=== PATIENT | female | born 1950 | race Caucasian/White ===

== ENCOUNTER 2019-08-06 14:18 | Outpatient (CLI) | payer MEDICARE, SELFPAY ==
--- NOTE | ~2019-08-06 | CT_ITS ---
EXAMINATION: CT brain wo con EXAM DATE: 08/06/2019 14:35 INDICATION: Dizziness. TECHNIQUE: Spiral CT of the head was performed without contrast. Axial, coronal and sagittal images were reviewed. The dose-length product (DLP) for this examination was 605.33 mGy-cm. The exposure w as tailored according to patient size, and iterative reconstruction (ASIR) was used as additional dos e reduction technique. Comparison is made to prior examination from 03/30/2018. FINDINGS: There is no acute intraparenchymal hemorrhage. No evidence of intraparenchymal brain mass lesion. No evidence of acute infarction. Please note that initial head CT has limited sensitivity f or small or acute infarctions. Small old bifrontal lobe infarctions. Punctate old left caudate head lacunar infarction. There is mild to moderate periventricular and subcortical hypodensity, nonspecifi c but probably related to small vessel ischemic disease. There is mild prominence of the sulci and ventricles related to cerebral atrophy. There is intracranial carotid arteriosclerosis. There are no extra-axial collections. There is no mass effect or midline shift. The orbits are unremarkable. Soft tissue is unremarkable. The visualized sinuses and mastoid air cells are well aerated. IMPRESSION: 1. No acute intracranial findings. 2. Chronic age related findings. Reviewed, dictated and finalized at location B. [employer]
== END 2019-08-06 14:19 | disposition home or self-care (01) ==
LOC: ANHIMG 14:19
PROVIDERS: PCP Internal Medicine; Visit Provider Physician Assistant
DX: G45.9 Transient cerebral ischemic attack, unspecified (principal); R42 Dizziness and giddiness
CPT/HCPCS: 70450

== ENCOUNTER 2019-12-21 14:27 | Outpatient (CLI) | payer MEDICARE, SELFPAY ==
--- NOTE | ~2019-12-21 | US_ITS ---
EXAMINATION: US carotid duplex BI DATE: 12/21/2019 15:22 INDICATION: Carotid atherosclerosis. Cerebral atherosclerosis. Syncope. TECHNIQUE: Grayscale, color Doppler, and pulsed Doppler images of the cervical carotid arteries were obtained. The degree of vessel stenosis is placed in one of the following categories: normal, <50%, 5 0-69%, >=70% but less than near-occlusion, near-occlusion, or total occlusion. Note that percent sten osis relative to normal distal artery lumen diameter is indirectly measured from velocity measurement s as described by Get, et al. Radiology 2003; 229:340-346. COMPARISON: 03/30/2018 FINDINGS: RIGHT: The right common carotid artery (CCA) peak systolic velocity (PSV) is 64 cm/s. The right internal car otid artery (ICA) PSV is 47 cm/s. The right ICA end-diastolic velocity (EDV) is 29 cm/s. The right IC A/CCA PSV ratio is 0.7. Grayscale and color Doppler images yield an estimate of <50% diameter reducti on from plaque in the ICA. The external carotid artery (ECA) PSV is 90 cm/s. There is antegrade flow in the right vertebral artery. LEFT: The left CCA PSV is 43 cm/s. The left ICA PSV is 31 cm/s. The left ICA EDV is 19 cm/s. The left ICA/C CA PSV ratio is 0.7. Grayscale and color Doppler images yield an estimate of <50% diameter reduction from plaque in the ICA. The ECA PSV is 59 cm/s. There is antegrade flow in the left vertebral artery. IMPRESSION: 1. <50% stenosis in the right internal carotid artery. 2. <50% stenosis in the left internal carotid artery. 3. Cardiac arrhythmias is present. Correlate with EKG. Reviewed, dictated and finalized at location A.
--- NOTE | 2019-12-24 14:04 | WPDHOLTEREM ---
Holter/Event Monitor Holter/Event Monitor Date of procedure: 12/21/19 Procedure Type: 24 hour holter monitor Indications: Syncope Conclusion: 1. 24 hour holter monitor on 12/21/19. 2. Underlying rhythm is atrial fibrillation. HR range 52-176 bpm; average HR 96 bpm. 3. There are no other supraventricular arrhythmias. 4. There are 821 premature ventricular complexes and 1 ventricular couplet. No ventricular tachycardia. 5. No significant pauses greater than 2 seconds. 6. No symptoms available for correlation.
== END 2019-12-21 14:28 | disposition home or self-care (01) ==
PROVIDERS: PCP Internal Medicine; Visit Provider Internal Medicine
DX: R55 Syncope and collapse (principal); I65.23 Occlusion and stenosis of bilateral carotid arteries
CPT/HCPCS: 93225; 93226; 93880

== ENCOUNTER 2019-12-23 11:29 | Outpatient (CLI) | payer MEDICARE, SELFPAY ==
--- NOTE | 2019-12-23 11:37 | ECG_ITS ---
Measurements Intervals [place] Rate: 110 P: AK: 0 QRS: 38 QRSD: 90 T: 40 QT: 328 QTc: 445 Interpretive Statements ATRIAL FIBRILLATION WITH RAPID VENTRICULAR RESPONSE MINIMAL Q WAVES- INFERIOR LEADS ABNORMAL ECG Electronically Signed On 12-23-2019 11:57:25 CDT by Darren Chauhan D.O.
== END 2019-12-23 11:30 | disposition home or self-care (01) ==
LOC: ANHLAB 11:32
PROVIDERS: PCP Internal Medicine; Visit Provider Internal Medicine
DX: R09.89 Other specified symptoms and signs involving the circulatory and respiratory systems (principal); R94.31 Abnormal electrocardiogram [ECG] [EKG]
CPT/HCPCS: 93005

== ENCOUNTER 2020-03-23 20:34 | IRF | payer MEDICARE, SELFPAY ==
--- NOTE | 2020-03-23 19:35 | ADMGEN ---
This patient, Janessa Foster, was admitted to [facility] Room 224-01. Patient/family oriented to hospital policies and general routines including ID bracelet, bed and alarms, visiting hours, pain management, procedures, bathroom and other care routines, personal items, smoking policy, room service/diet, and visiting hours. Valuables list has been completed. Information on how to activate the Rapid Response Team has been discussed. Patient/Family are encouraged to report perceived risks to care and to ask questions if they do not understand what they are told or what they should do.
[2020-03-23 22:41] VITALS: PULSE 90
[2020-03-23] MEDS: METOPROLOL TARTRATE 25 MG TABLET 75 MG PO (22:41)
[2020-03-23] MEDS: ATORVASTATIN 40 MG TABLET 80 MG PO (22:43)
[2020-03-23] MEDS: clonazePAM (*CRX) 0.5 MG TABLET 2 MG PO (23:07)
[2020-03-23] MEDS: APIXABAN 5 MG TABLET PO (23:08)
[2020-03-24 05:04] VITALS: BP 119/94; PULSE 97; RESP 18; TEMP 35.9; O2SAT 99
[2020-03-24 05:10] LABS: Basophils Absolute Auto 0.1 K/mm3 (0.0-0.1); Basophils Percent Auto 0.9 % (0.2-1.2); Eosinophils Absolute Auto 0.3 K/mm3 (0-0.3); Eosinophils Percent Auto 3.7 % (0-4.4); Hemoglobin 13.5 g/dL (12.0-15.0); Immature Granulocyte Absolute 0.02 K/mm3 (0.00-0.031); Immature Granulocyte Percent A 0.2 % (0-0.5); Lymphocytes Percent Auto 37.9 % (18.3-44.2); Mean Corpuscular HGB Conc 34.6 g/dl (32-36); Mean Corpuscular Hemoglobin 32.9 pg (26-34); Mean Corpuscular Volume 95.1 fl (80-100); Mean Platelet Volume 10.4 fl (7.4-10.4); Monocytes Absolute Auto 0.6 K/mm3 (0.1-0.6); Monocytes Percent Auto 7.8 % (2.6-8.5); Neutrophils Percent Auto 49.5 % (45.5-73.1); Platelet Count Result 227 k/mm3 (150-375); Red Cell Distribution Width 12.4 % (11.5-14.5); White Blood Count 8.2 K/mm3 (4.5-10.0)
[2020-03-24 05:30] LABS: Anion Gap 7 mmol/L (8-16); Blood Urea Nitrogen 15 mg/dL (7-17); Calcium 8.9 mg/dL (8.4-10.2); Carbon Dioxide 27 mmol/L (22-30); Chloride 104 mmol/L (98-107); Cholesterol 119 mg/dL (0-200); Estimated Glomerular Filt Rate > 60; Glucose 133 mg/dL (65-105); HDL Direct 38 mg/dL; Potassium 4.1 mmol/L (3.4-5.0); Sodium 138 mmol/L (137-145); Triglycerides 182 mg/dL (<150)
[2020-03-24 05:42] LABS: LDL Cholesterol Direct 56 mg/dL
[2020-03-24] MEDS: APIXABAN 5 MG TABLET PO ×2 (08:45→20:45)
[2020-03-24] MEDS: ESCITALOPRAM OXALATE 5 MG TABLET PO (08:45)
[2020-03-24 08:46] VITALS: PULSE 97
[2020-03-24] MEDS: SPIRONOLACTONE 25 MG TABLET PO (08:46)
[2020-03-24] MEDS: METOPROLOL TARTRATE 25 MG TABLET 75 MG PO ×2 (08:46→20:45)
[2020-03-24] MEDS: PANTOPRAZOLE SOD SESQUIHYDRATE 20 MG TAB PO (09:28)
--- NOTE | 2020-03-24 11:21 | PM.IMHP ---
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 The patient is a 69-year-old right-handed woman with a prior medical history of hypertension and atrial fibrillation on rivaroxaban who was transferred / admitted to [facility] on March 18, 2020 from [facility] with concern for left ICA occlusion. The patient presented to [facility] ER with symptoms of right-sided weakness and speech impairment. NIH SS was 11. CT angio of the head and neck done showed occlusion of the left ICA likely at ICA terminus. There was good intracranial reconstruction of the left middle cerebral artery and left anterior cerebral artery from the right anterior circulation. She was also found to be in atrial fibrillation with rapid ventricular response at the rate of 130 to 150 per minute. She was given 20 milligram of Cardizem and started on Cardizem infusion at 5 milligram/hour. She was transferred to [facility] for ischemic infarct workup and possible surgical intervention for the left internal carotid artery. Initial examination at [facility] showed the patient had improved significantly and her in eye HSS a decrease to 1 with right lower extremity drift. Head CT showed no hemorrhage. TPA was not us administered since she was outside the window. Vascular neurology was consulted and they did not recommend any endovascular intervention since her exam had improved significantly. Patient's heart rate was 92 0s. She was started on heparin drip without boluses for left ICA stenosis and probably due to atrial fibrillation I suspect she was admitted to ICU. Laboratory daughter showed hemoglobin A1c is 6.5 lipid panel showed LDL be 121. The patient will receive atorvastatin daily. On March 22, 2020 the heparin infusion was discontinued and she was transitions to apixaban 5 milligram b.i.d.. Patient is awake alert x3 with delayed processing and decreased word-finding with limits conversation clearly expressive aphasia and also has right-sided hemiparesis. The patient has not traveled outside the [place] or had contact with someone who is ill that has traveled outside the [place] in the past 21 days. The patient has not traveled an area of the [place] that is experiencing no transmission of the Coronavirus and has not had close personal contact with anyone that has. Patient does not have a fever. The patient is not experiencing lower respiratory illness symptoms. Therapies were initiated at the acute care facility and the patient was transferred to us from [facility] on March 23, 2020. The patient has had no major surgery in the past and days. Patient has had 1 fall in the past year. The patient has not had falls with injury in the past year however she did fell. Past medical history, atrial fibrillation, tachycardia, syncope, history of CVA, GERD, hypertension, hyperlipidemia, hypothyroidism, right-sided weakness, left internal carotid artery occlusion, hyperglycemia. Past surgical history EGD and March 17, [address] esqueda Social history, patient is and retired. Patient lives alone in a 1 story home with 2 steps to enter. Laundry is on the main floor. The patient reported she was totally independent in all ADLs IA and the LS and ambulation without assistive device. Patient is community ambulator and still drives. Patient daughter is available to stay with daughter after rehab. In fact she was present at the time of the interview in an sees saw her is standing with little help brushing her teeth as a part of the occupational therapy. Patient denies tobacco alcohol or illicit use of drugs. Patient has 1 fall in the past 6 months no fal
[2020-03-24 14:00] VITALS: BP 119/88; PULSE 86; RESP 16; TEMP 36.7; O2SAT 97
--- NOTE | 2020-03-24 14:59 | RPD ---
INDIVIDUALIZED PLAN OF CARE FOR Janessa Foster Brief Synthesis of Pre-Admission Screen, Post-Admission Evaluation and Therapy Evaluations: The patient presents to rehab with left MCA territory stroke with left ICA thrombus. Comorbidities include atrial fibrillation, hypertension, hyperlipemia, hypothyroidism, right-side weakness, left internal carotid artery occlusion, mild aphasia, dizziness, left eye cataract. The complexity of the patient's medical management, nursing, and therapy needs require an inpatient rehab hospital stay with a physician-led interdisciplinary team approach. The patient?s needs will be best met in an intensive program vs. at a lower level of care. The patient requires physician services for neurology services, medical oversight, and coordination of care. The patient needs physician monitoring and treatment of adverse reactions to new medications, monitoring of infection, pain control, and anticoagulation monitoring. The patient requires nursing services for frequent neuro checks, anticoagulation therapy, medication management and education, pressure relief and skin care management, monitoring of labs, bowel and bladder training, IV administration, and fall/safety precautions. Deficits include:ADLs, Balance, Cognition, Endurance, Family Training/Education, Mobility, Pain Management, ROM, Safety, Speech, Strength, Transfers, and Swallowing. Quarry Plug [employer] Feather Driller/Case Management for: Discharge Planning and Patient/Family Counseling Physical Therapy: 5 days per week for 60 minutes. Treatments may include: Therapeutic Exercise, Gait Training, Neuromuscular Re-education, Transfer Training, Community Reintegration, Bed Mobility, Patient/Family Education, Wheelchair Mobility Group Therapy/Concurrent Therapy Rationales: -Improve attention span during functional activities in a distracted environment. -Enhance problem solving and/or adequate judgment skills during functional activities in a distracted environment. -Promote increased safety awareness in a distracted environment to reduce fall risk with functional tasks, transfers, and ambulation to allow a more safe, self-sufficient return to the home environment. -Improve dynamic balance skills to promote safety and independence with functional activities in a distracted environment for maximum gain. Occupational Therapy: 5 days per week for 60 minutes. Treatments may include: Therapeutic Exercise, Therapeutic Activity, Cognitive Training, Self-Care Transfer Training, Community Reintegration, Home Management, Patient/Family Education, Wheelchair Mobility Training, Energy Conservation Training Group Therapy/Concurrent Therapy Rationales: -Allow therapist to observe and teach generalization and carry-over of skills learned in individual therapy. -Enhance problem solving and sequencing skills during therapeutic activities in a distracted environment. -Promote increased safety awareness in a realistic setting to reduce fall risk with functional tasks due to visual and verbal distractions. -Increase functional level with ADLs, ADL transfers and use of adaptive equipment through therapeutic activities with others while promoting safety to allow a more safe, self-sufficient return home. Speech Therapy: 5 days per week for 60 minutes. Treatments may include: Dysphasia Therapy, Speech/Language/Communication Therapy, Cognitive Training, Patient/Family Education Group Therapy/Concurrent Therapy - Rationale: -Allow therapist to observe and teach generalization and carry-over of skills learned in individual therapy. -Improve comprehension skills with complex or abstract ideas through discussion in a realistic setting. -Enhance problem solving skills with complex issues during activities in a distracted environment. -Promote increased memory skills and concentration in a distracted environment for a safe transition home. -Improve attention and focus with language/communication skills in a realistic and supportive ther
[2020-03-24] MEDS: ATORVASTATIN 40 MG TABLET 80 MG PO (20:47)
[2020-03-24] MEDS: clonazePAM (*CRX) 0.5 MG TABLET 2 MG PO (20:47)
[2020-03-24 22:00] VITALS: BP 113/96; PULSE 84; RESP 16; TEMP 36.5; O2SAT 97
[2020-03-25 06:00] VITALS: BP 125/80; PULSE 90; RESP 16; TEMP 36.1; O2SAT 99
--- NOTE | 2020-03-25 08:23 | PCPTNOTE ---
Janessa Foster was evaluated for a wheeled walker on 03/25/2020 by this physical therapist assistant professor of anthropology. The wheeled walker will resolve patient's mobility limitations and will be used for ADL's within the home. The patient can safely use the wheeled walker. ?The wheeled walker will resolve the patient?s mobility deficits, including impaired balance, decreased endurance and decreased strength. Radha Mata, BEACH ATTENDANT
[2020-03-25 09:44] VITALS: PULSE 90
[2020-03-25] MEDS: SPIRONOLACTONE 25 MG TABLET PO (09:44)
[2020-03-25] MEDS: ESCITALOPRAM OXALATE 5 MG TABLET PO (09:44)
[2020-03-25] MEDS: APIXABAN 5 MG TABLET PO ×2 (09:44→21:05)
[2020-03-25] MEDS: PANTOPRAZOLE SOD SESQUIHYDRATE 20 MG TAB PO (09:44)
[2020-03-25] MEDS: METOPROLOL TARTRATE 25 MG TABLET 75 MG PO ×2 (09:44→21:05)
--- NOTE | 2020-03-25 12:21 | WPDNEURORHBP ---
Subjective Date/time seen: 03/25/20 12:21 Interval history: this 69-year-old woman is here after having had a left hemispheric stroke on with trouble word finding and expressing herself which is getting better along with right hemiparesis she is right-handed and making excellent progress denies any headache nausea vomiting chest pain shortness of breath fever chills sore throat Review of Systems Review of Systems: All systems reviewed & are unremarkable except as noted in HPI and below Functional Status Ambulation Ability Ability to Ambulate 10 Feet: Contact Guard Ability to Ambulate 50 Feet With 2 Turns: Contact Guard Ability to Ambulate 150 Feet: Contact Guard Ambulation Assistive Devices: Walker, Wheeled Transfers Ability Ability to Transfer In/Out of Chair: Contact Guard Exam Const: General: comfortable and no acute distress HENMT: General nose exam: Normal nares present Mouth: Yes moist mucous membranes Eyes: General: appearance normal, both eyes and all related structures Neck: Neck: supple and no JVD Resp: Effort & Inspection: normal respiratory effort Auscultation: clear to auscultation bilaterally Cardio: Rate: regular rate Rhythm: regular rhythm GI: GI Palp: Yes Soft to palpation Auscultation: normal bowel sounds Skin: General skin exam: normal color and no rashes or lesions noted Neuro: Other: the patient is awake alert well oriented able to communicate and she was talking to her niece relatively fluid leak comparing to yesterday who lives in [place] right-sided weakness is also improving Extrem: General: normal to inspection Psych: Mental Status: mental status grossly normal Objective Data Vital Signs Vital Signs: Vital Signs - 24 hr 03/24/20 14:00 03/24/20 22:00 03/25/20 06:00 Temperature 36.7 C 36.5 C 36.1 C L Pulse Rate 86 84 90 Respiratory Rate 16 16 16 Blood Pressure 119/88 113/96 H 125/80 Pulse Oximetry 97 97 99 03/25/20 09:44 Temperature Pulse Rate 90 Respiratory Rate Blood Pressure Pulse Oximetry Intake/Output Intake/Output: Intake & Output 03/22/20 03/23/20 03/24/20 03/25/20 23:59 23:59 23:59 23:59 Intake Total 1200 480 Balance 1200 480 Meds/Results Medications: Active Medications Generic Name Dose Route Start Last Admin Trade Name Freq PRN Reason Stop Dose Admin Apixaban 5 mg 03/23/20 22:15 03/25/20 09:44 Eliquis PO 5 mg Q12HR ISAAC Administration Atorvastatin Calcium 80 mg 03/23/20 21:30 03/24/20 20:47 Lipitor PO 80 mg HS ISAAC Administration Clonazepam 2 mg 03/23/20 21:00 03/24/20 20:47 Klonopin Tablet PO 2 mg HS ISAAC Administration Escitalopram Oxalate 5 mg 03/24/20 09:00 03/25/20 09:44 Lexapro PO 5 mg DAILY ISAAC Administration Metoprolol Tartrate 75 mg 03/23/20 21:30 03/25/20 09:44 Lopressor PO 75 mg Q12HR ISAAC Administration Pantoprazole Sodium 20 mg 03/24/20 09:00 03/25/20 09:44 Protonix PO 20 mg QAM ISAAC Administration Spironolactone 25 mg 03/24/20 09:00 03/25/20 09:44 Aldactone PO 25 mg DAILY ISAAC Administration Tramadol HCl 50 mg 03/24/20 16:03 Ultram PO HS PRN Pain Rated 4-6 Progress Note: A&P Assessment and Plan (1) A-fib: Code(s): I48.91 - Unspecified atrial fibrillation Status: Acute (2) Syncope: Code(s): R55 - Syncope and collapse Status: Acute (3) History of CVA (cerebrovascular accident): Code(s): Z86.73 - Personal history of transient ischemic attack (TIA), and cerebral infarction without residual deficits Status: Acute (4) Fatigue: Code(s): R53.83 - Other fatigue Status: Acute (5) Gastro-esophageal reflux disease without esophagitis: Code(s): K21.9 - Gastro-esophageal reflux disease without esophagitis Status: Acute (6) History of CVA with residual deficit: Code(s): I69.30 - Unspecified sequelae of cerebral infarction Status: Acute (
[2020-03-25 13:38] VITALS: BMI 28.5
[2020-03-25 13:39] VITALS: BMI 28.5
[2020-03-25 14:00] VITALS: BP 130/67; PULSE 98; RESP 16; TEMP 36.2; O2SAT 99
[2020-03-25 21:05] VITALS: PULSE 90
[2020-03-25] MEDS: clonazePAM (*CRX) 0.5 MG TABLET 2 MG PO (21:05)
[2020-03-25] MEDS: ATORVASTATIN 40 MG TABLET 80 MG PO (21:05)
[2020-03-25 22:00] VITALS: BP 152/85; PULSE 87; RESP 19; TEMP 36.2; O2SAT 98
[2020-03-26 06:00] VITALS: BP 135/86; PULSE 74; RESP 16; TEMP 36; O2SAT 100
[2020-03-26] MEDS: APIXABAN 5 MG TABLET PO ×2 (08:25→20:04)
[2020-03-26 08:26] VITALS: PULSE 74
[2020-03-26] MEDS: METOPROLOL TARTRATE 25 MG TABLET 75 MG PO ×2 (08:26→20:04)
[2020-03-26] MEDS: ESCITALOPRAM OXALATE 5 MG TABLET PO (08:26)
[2020-03-26] MEDS: PANTOPRAZOLE SOD SESQUIHYDRATE 20 MG TAB PO (08:26)
[2020-03-26] MEDS: SPIRONOLACTONE 25 MG TABLET PO (08:26)
[2020-03-26 14:00] VITALS: BP 116/87; PULSE 87; RESP 18; TEMP 36.8; O2SAT 97
[2020-03-26 20:04] VITALS: PULSE 88
[2020-03-26] MEDS: clonazePAM (*CRX) 0.5 MG TABLET 2 MG PO (20:04)
[2020-03-26] MEDS: ATORVASTATIN 40 MG TABLET 80 MG PO (20:04)
[2020-03-26 22:00] VITALS: BP 102/76; PULSE 78; RESP 17; TEMP 36; O2SAT 98
[2020-03-27 06:00] VITALS: BP 119/83; PULSE 83; RESP 17; TEMP 36.1; O2SAT 98
[2020-03-27] MEDS: PANTOPRAZOLE SOD SESQUIHYDRATE 20 MG TAB PO (08:35)
[2020-03-27] MEDS: APIXABAN 5 MG TABLET PO ×2 (08:35→20:33)
[2020-03-27] MEDS: ESCITALOPRAM OXALATE 5 MG TABLET PO (08:35)
[2020-03-27 08:36] VITALS: PULSE 80
[2020-03-27] MEDS: SPIRONOLACTONE 25 MG TABLET PO (08:36)
[2020-03-27] MEDS: METOPROLOL TARTRATE 25 MG TABLET 75 MG PO ×2 (08:36→20:33)
[2020-03-27 14:00] VITALS: BP 121/81; PULSE 86; RESP 20; TEMP 36.7; O2SAT 99
--- NOTE | 2020-03-27 17:17 | WPDNEURORHBP ---
Subjective Date/time seen: 03/27/20 17:17 Interval history: this 69-year-old woman is here after having had the left middle cerebral artery territory infarct also atrial fibrillation for which she is on apixaban her main issue remains subtle but present speech defect and difficulty recognizing right versus left and performing the activities bilaterally because of the disconnection between the right and left cerebral hemisphere at times difficulty source walking the repetitive alternating movement and unable to understand complicated questioning are 3 steps commands otherwise the motor weakness remains in fact improved bilaterally right is affected more so but considering the disconnect she feels the left side is weaker in any event she is weak bilaterally and niece the PT OT and speech Review of Systems Review of Systems: All systems reviewed & are unremarkable except as noted in HPI and below Functional Status Ambulation Ability Ability to Ambulate 10 Feet: Standby Assistance Ability to Ambulate 50 Feet With 2 Turns: Standby Assistance Ability to Ambulate 150 Feet: Standby Assistance Ambulation Assistive Devices: Walker, Wheeled Transfers Ability Ability to Transfer In/Out of Chair: Standby Assistance Exam Const: General: comfortable and no acute distress HENMT: General nose exam: Normal nares present Mouth: Yes moist mucous membranes Eyes: General: appearance normal, both eyes and all related structures Neck: Neck: supple and no JVD Resp: Effort & Inspection: normal respiratory effort Auscultation: clear to auscultation bilaterally Cardio: Rate: regular rate Rhythm: regular rhythm GI: GI Palp: Yes Soft to palpation Auscultation: normal bowel sounds Skin: General skin exam: normal color and no rashes or lesions noted Neuro: Other: patient is awake alert oriented x3 difficult to follow 3 step command and bilateral weakness due to disconnection where it is difficult to assess with the right is weaker the left is weaker because the dexterity is decreased bilaterally Extrem: General: normal to inspection Psych: Mental Status: mental status grossly normal Other: short-term memory deficit along with comprehension defect in speech and language function Objective Data Vital Signs Vital Signs: Vital Signs - 24 hr 03/26/20 20:04 03/26/20 22:00 03/27/20 06:00 Temperature 36.0 C L 36.1 C L Pulse Rate 88 78 83 Respiratory Rate 17 17 Blood Pressure 102/76 119/83 Pulse Oximetry 98 98 03/27/20 08:36 03/27/20 14:00 Temperature 36.7 C Pulse Rate 80 86 Respiratory Rate 20 Blood Pressure 121/81 Pulse Oximetry 99 Intake/Output Intake/Output: Intake & Output 03/24/20 03/25/20 03/26/20 03/27/20 23:59 23:59 23:59 23:59 Intake Total 1200 1440 480 480 Balance 1200 1440 480 480 Meds/Results Medications: Active Medications Generic Name Dose Route Start Last Admin Trade Name Freq PRN Reason Stop Dose Admin Apixaban 5 mg 03/23/20 22:15 03/27/20 08:35 Eliquis PO 5 mg Q12HR ISAAC Administration Atorvastatin Calcium 80 mg 03/23/20 21:30 03/26/20 20:04 Lipitor PO 80 mg HS ISAAC Administration Clonazepam 2 mg 03/23/20 21:00 03/26/20 20:04 Klonopin Tablet PO 2 mg HS ISAAC Administration Escitalopram Oxalate 5 mg 03/24/20 09:00 03/27/20 08:35 Lexapro PO 5 mg DAILY ISAAC Administration Metoprolol Tartrate 75 mg 03/23/20 21:30 03/27/20 08:36 Lopressor PO 75 mg Q12HR ISAAC Administration Pantoprazole Sodium 20 mg 03/24/20 09:00 03/27/20 08:35 Protonix PO 20 mg QAM ISAAC Administration Spironolactone 25 mg 03/24/20 09:00 03/27/20 08:36 Aldactone PO 25 mg DAILY ISAAC Administration Tramadol HCl 50 mg 03/24/20 16:03 Ultram PO HS PRN Pain Rated 4-6 Progress Note: A&P Assessment and Plan (1) A-fib: Code(s): I48.91 - Unspecified atrial fibrillation Status: Acute (2) History of CVA (cerebrovascular a
[2020-03-27 20:33] VITALS: PULSE 82
[2020-03-27] MEDS: ATORVASTATIN 40 MG TABLET 80 MG PO (20:33)
[2020-03-27] MEDS: clonazePAM (*CRX) 0.5 MG TABLET 2 MG PO (20:36)
[2020-03-27 21:07] VITALS: BP 146/76; PULSE 83; RESP 18; TEMP 36; O2SAT 100
[2020-03-28 05:44] VITALS: BP 129/81; PULSE 88; RESP 18; TEMP 36.3; O2SAT 100
[2020-03-28] MEDS: APIXABAN 5 MG TABLET PO ×2 (08:35→20:28)
[2020-03-28 08:36] VITALS: PULSE 88
[2020-03-28] MEDS: METOPROLOL TARTRATE 25 MG TABLET 75 MG PO ×2 (08:36→20:28)
[2020-03-28] MEDS: SPIRONOLACTONE 25 MG TABLET PO (08:36)
[2020-03-28] MEDS: ESCITALOPRAM OXALATE 5 MG TABLET PO (08:36)
[2020-03-28] MEDS: PANTOPRAZOLE SOD SESQUIHYDRATE 20 MG TAB PO (08:36)
--- NOTE | 2020-03-28 09:18 | PCPTNOTE ---
Janessa Foster was evaluated for a wheeled walker on 03/28/2020 by this physical therapist. The wheeled walker will resolve patient's mobility limitations and will be used for ADL's within the home. The patient can safely use the wheeled walker. ?The wheeled walker will resolve the patient?s mobility deficits, including impaired balance, decreased strength and endurance and safety with gait. Cari Ghotra, PT
--- NOTE | 2020-03-28 10:51 | WPDNEURORHBP ---
Subjective Date/time seen: 03/28/20 10:51 69 years old lady admitted to the rehab with left middle cerebral artery territory stroke and left ICA thrombus in addition to the history of 1. Hypertension 2. Atrial fibrillation for which she is on rivaroxaban 3. GERD 4. Hypothyroidism and 5. Hyperlipidemia. Routine lab with mild anemia, GFR of 55, triglycerides of 182 and abnormal UA Review of Systems Review of Systems: All systems reviewed & are unremarkable except as noted in HPI and below Functional Status Ambulation Ability Ability to Ambulate 10 Feet: Standby Assistance Ability to Ambulate 50 Feet With 2 Turns: Standby Assistance Ability to Ambulate 150 Feet: Standby Assistance Ambulation Assistive Devices: Walker, Wheeled Transfers Ability Ability to Transfer In/Out of Chair: Standby Assistance Exam Narrative: Exam Narrative: exam reveals her to be awake alert in no obvious acute distress ear nose throat examination normal no rhinorrhea moist mucous membranes. Eyes normal. Neck is supple with no JVD. Respiration without rhonchi or crepitation. Heart regular. Abdomen is soft with normal bowel sounds. Skin clear neurological examination abnormal though awake alert oriented x3 and follows the commands but has bilateral weakness. mental status otherwise normal Objective Data Vital Signs Vital Signs: Vital Signs - 24 hr 03/27/20 14:00 03/27/20 20:33 03/27/20 21:07 Temperature 36.7 C 36.0 C L Pulse Rate 86 82 83 Respiratory Rate 20 18 Blood Pressure 121/81 146/76 H Pulse Oximetry 99 100 03/28/20 05:44 03/28/20 08:36 Temperature 36.3 C L Pulse Rate 88 88 Respiratory Rate 18 Blood Pressure 129/81 Pulse Oximetry 100 Intake/Output Intake/Output: Intake & Output 03/25/20 03/26/20 03/27/20 03/28/20 23:59 23:59 23:59 23:59 Intake Total 1440 480 720 240 Balance 1440 480 720 240 Meds/Results Medications: Active Medications Generic Name Dose Route Start Last Admin Trade Name Freq PRN Reason Stop Dose Admin Apixaban 5 mg 03/23/20 22:15 03/28/20 08:35 Eliquis PO 5 mg Q12HR ISAAC Administration Atorvastatin Calcium 80 mg 03/23/20 21:30 03/27/20 20:33 Lipitor PO 80 mg HS ISAAC Administration Clonazepam 2 mg 03/23/20 21:00 03/27/20 20:36 Klonopin Tablet PO 2 mg HS ISAAC Administration Escitalopram Oxalate 5 mg 03/24/20 09:00 03/28/20 08:36 Lexapro PO 5 mg DAILY ISAAC Administration Metoprolol Tartrate 75 mg 03/23/20 21:30 03/28/20 08:36 Lopressor PO 75 mg Q12HR ISAAC Administration Pantoprazole Sodium 20 mg 03/24/20 09:00 03/28/20 08:36 Protonix PO 20 mg QAM ISAAC Administration Spironolactone 25 mg 03/24/20 09:00 03/28/20 08:36 Aldactone PO 25 mg DAILY ISAAC Administration Tramadol HCl 50 mg 03/24/20 16:03 Ultram PO HS PRN Pain Rated 4-6 Progress Note: A&P Additional Plan continue the management as such
[2020-03-28 14:00] VITALS: BP 111/75; PULSE 98; RESP 18; TEMP 36.3; O2SAT 96
[2020-03-28] MEDS: clonazePAM (*CRX) 0.5 MG TABLET 2 MG PO (20:27)
[2020-03-28 20:28] VITALS: PULSE 88
[2020-03-28] MEDS: ATORVASTATIN 40 MG TABLET 80 MG PO (20:28)
[2020-03-28 22:00] VITALS: BP 137/84; PULSE 88; RESP 17; TEMP 36; O2SAT 96
[2020-03-29 06:00] VITALS: BP 127/87; PULSE 101; RESP 19; TEMP 36; O2SAT 97
[2020-03-29 08:12] VITALS: PULSE 101
[2020-03-29] MEDS: APIXABAN 5 MG TABLET PO ×2 (08:12→21:54)
[2020-03-29] MEDS: SPIRONOLACTONE 25 MG TABLET PO (08:12)
[2020-03-29] MEDS: ESCITALOPRAM OXALATE 5 MG TABLET PO (08:12)
[2020-03-29] MEDS: METOPROLOL TARTRATE 25 MG TABLET 75 MG PO ×2 (08:12→21:55)
[2020-03-29] MEDS: PANTOPRAZOLE SOD SESQUIHYDRATE 20 MG TAB PO (08:12)
--- NOTE | 2020-03-29 13:17 | WPDNEURORHBP ---
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 and has difficulty using the left side along with right-sided weakness so she has bilateral component and she has trouble recognizing right versus left otherwise speech is really much clearer and she is improving improving quite a bit however because of her disconnection she will need assistance when she is discharged she denies any headache nausea vomiting chest pain shortness of breath fever chills sore throat According to the occupational therapist the patient needs lots of cues and guidance because of the disconnection on the other hand she is able to walk 400 feet is speech therapy seeing her and working with her deficits the family told us via telephone that they will provide 247 supervision after discharge which will be in the next few days Review of Systems Review of Systems: All systems reviewed & are unremarkable except as noted in HPI and below Functional Status Ambulation Ability Ability to Ambulate 10 Feet: Independent Ability to Ambulate 50 Feet With 2 Turns: Independent Ability to Ambulate 150 Feet: Standby Assistance Ambulation Assistive Devices: Walker, Wheeled Transfers Ability Ability to Transfer In/Out of Chair: Independent Exam Const: General: comfortable and no acute distress HENMT: General nose exam: Normal nares present Mouth: Yes moist mucous membranes Eyes: General: appearance normal, both eyes and all related structures Neck: Neck: supple and no JVD Resp: Effort & Inspection: normal respiratory effort Auscultation: clear to auscultation bilaterally Cardio: Other: rate controlled atrial fibrillation GI: GI Palp: Yes Soft to palpation Auscultation: normal bowel sounds Skin: General skin exam: normal color and no rashes or lesions noted Neuro: Other: patient is awake alert oriented x3 has trouble word finding and once examiner communicates with her here she will be able to find clear speech defect which is subtle but present the difference between the right and the left is still defective with bilateral deficit right-sided weakness clearly from the left hemispheric stroke and the left-sided decreased dexterity and use because of disconnection with the 2 hemispheres she is able to walk with the little assistance about 400 feet but with guidance and fall prevention Extrem: General: normal to inspection Psych: Mental Status: mental status grossly normal Objective Data Vital Signs Vital Signs: Vital Signs - 24 hr 03/28/20 14:00 03/28/20 20:28 03/28/20 22:00 Temperature 36.3 C L 36.0 C L Pulse Rate 98 88 88 Respiratory Rate 18 17 Blood Pressure 111/75 137/84 Pulse Oximetry 96 96 03/29/20 06:00 03/29/20 08:12 Temperature 36.0 C L Pulse Rate 101 H 101 H Respiratory Rate 19 Blood Pressure 127/87 Pulse Oximetry 97 Intake/Output Intake/Output: Intake & Output 03/26/20 03/27/20 03/28/20 03/29/20 23:59 23:59 23:59 23:59 Intake Total 480 720 720 240 Balance 480 720 720 240 Meds/Results Medications: Active Medications Generic Name Dose Route Start Last Admin Trade Name Heladioq PRN Reason Stop Dose Admin Apixaban 5 mg 03/23/20 22:15 03/29/20 08:12 Eliquis PO 5 mg Q12HR ISAAC Administration Atorvastatin Calcium 80 mg 03/23/20 21:30 03/28/20 20:28 Lipitor PO 80 mg HS ISAAC Administration Clonazepam 2 mg 03/23/20 21:00 03/28/20 20:27 Klonopin Tablet PO 2 mg HS ISAAC Administration Escitalopram Oxalate 5 mg 03/24/20 09:00 03/29/20 08:12 Lexapro PO 5 mg DAILY ISAAC Administration Metoprolol Tartrate 75 mg 03/23/20 21:30 03/29/20 08:12 Lopressor PO 75 mg Q12HR ISAAC Administration Pantoprazole Sodium 20 mg 03/24/20 09:00
[2020-03-29 14:00] VITALS: BP 130/91; PULSE 60; RESP 18; TEMP 36.2; O2SAT 96
[2020-03-29 20:00] VITALS: PULSE 83; RESP 19; O2SAT 97
[2020-03-29] MEDS: ATORVASTATIN 40 MG TABLET 80 MG PO (21:54)
[2020-03-29 21:55] VITALS: PULSE 83
[2020-03-29 22:00] VITALS: BP 121/88; PULSE 83; RESP 19; TEMP 36.1; O2SAT 97
[2020-03-29] MEDS: clonazePAM (*CRX) 0.5 MG TABLET 2 MG PO (22:00)
[2020-03-30 06:00] VITALS: BP 133/84; PULSE 80; RESP 16; TEMP 36.5; O2SAT 96
[2020-03-30 08:34] VITALS: PULSE 78
[2020-03-30] MEDS: METOPROLOL TARTRATE 25 MG TABLET 75 MG PO ×2 (08:34→20:02)
[2020-03-30] MEDS: SPIRONOLACTONE 25 MG TABLET PO (08:34)
[2020-03-30] MEDS: APIXABAN 5 MG TABLET PO ×2 (08:34→20:05)
[2020-03-30] MEDS: ESCITALOPRAM OXALATE 5 MG TABLET PO (08:34)
[2020-03-30] MEDS: PANTOPRAZOLE SOD SESQUIHYDRATE 20 MG TAB PO (08:34)
--- NOTE | 2020-03-30 13:24 | PCDIET ---
Nutrition Follow-Up Complete: Nutrition Diagnosis: Overweight related to history of excessive energy intake as evidenced by BMI of 28.6. Nutrition Goal: Patient to consume 75% of meals on heart healthy diet Goal met. Patient consuming 100% of recorded meals on heart healthy diet which is appropriate. Patient denies c/o or concerns. No new recommendations at this time. Last recorded weight is 68.6 kg. Recommend obtaining weekly weights. Bowel Motility: Last documented BM on 03/29/20. Labs Reviewed: No new labs available. Meds Noted: Lipitor, Lopressor, Protonix, Aldactone Additional Notes: No documented skin breakdown. Will continue to monitor with same goal. Nutrition Monitoring and Evaluation: Follow up in 7 days.
[2020-03-30 14:00] VITALS: BP 109/78; PULSE 100; RESP 20; TEMP 37; O2SAT 96
--- NOTE | 2020-03-30 15:09 | WPDNEURORHBP ---
Subjective Date/time seen: 03/30/20 15:09 Interval history: this 69-year-old woman is here with left hemispheric stroke and left internal carotid artery occlusion she continues to make progress however needs supervision at least in all the activities of daily living because of the left hemispheric deficit with a disconnection between the left hemisphere in the right hemisphere overall however see significantly improving as for as the hemiparesis is concerned Review of Systems Review of Systems: All systems reviewed & are unremarkable except as noted in HPI and below Functional Status Ambulation Ability Ability to Ambulate 10 Feet: Standby Assistance Ability to Ambulate 50 Feet With 2 Turns: Contact Guard Ability to Ambulate 150 Feet: Contact Guard Ambulation Assistive Devices: Walker, Wheeled Transfers Ability Ability to Transfer In/Out of Chair: Independent Exam Const: General: comfortable and no acute distress HENMT: General nose exam: Normal nares present Mouth: Yes moist mucous membranes Eyes: General: appearance normal, both eyes and all related structures Neck: Neck: supple and no JVD Resp: Effort & Inspection: normal respiratory effort Auscultation: clear to auscultation bilaterally Cardio: Rate: regular rate Rhythm: regular rhythm GI: GI Palp: Yes Soft to palpation Auscultation: normal bowel sounds Skin: General skin exam: normal color and no rashes or lesions noted Neuro: Other: patient is awake alert well oriented and improving hemiparesis Extrem: General: normal to inspection Psych: Mental Status: mental status grossly normal Other: mild cognitive deficit due to involvement of the left cerebral hemisphere Objective Data Vital Signs Vital Signs: Vital Signs - 24 hr 03/29/20 20:00 03/29/20 21:55 03/29/20 22:00 Temperature 36.1 C L Pulse Rate 83 83 83 Respiratory Rate 19 19 Blood Pressure 121/88 Pulse Oximetry 97 97 03/30/20 06:00 03/30/20 08:34 Temperature 36.5 C Pulse Rate 80 78 Respiratory Rate 16 Blood Pressure 133/84 Pulse Oximetry 96 Intake/Output Intake/Output: Intake & Output 03/27/20 03/28/20 03/29/20 03/30/20 23:59 23:59 23:59 23:59 Intake Total 720 720 840 240 Balance 720 720 840 240 Meds/Results Medications: Active Medications Generic Name Dose Route Start Last Admin Trade Name Freq PRN Reason Stop Dose Admin Apixaban 5 mg 03/23/20 22:15 03/30/20 08:34 Eliquis PO 5 mg Q12HR ISAAC Administration Atorvastatin Calcium 80 mg 03/23/20 21:30 03/29/20 21:54 Lipitor PO 80 mg HS ISAAC Administration Clonazepam 2 mg 03/23/20 21:00 03/29/20 22:00 Klonopin Tablet PO 2 mg HS ISAAC Administration Escitalopram Oxalate 5 mg 03/24/20 09:00 03/30/20 08:34 Lexapro PO 5 mg DAILY ISAAC Administration Metoprolol Tartrate 75 mg 03/23/20 21:30 03/30/20 08:34 Lopressor PO 75 mg Q12HR ISAAC Administration Pantoprazole Sodium 20 mg 03/24/20 09:00 03/30/20 08:34 Protonix PO 20 mg QAM ISAAC Administration Spironolactone 25 mg 03/24/20 09:00 03/30/20 08:34 Aldactone PO 25 mg DAILY ISAAC Administration Tramadol HCl 50 mg 03/24/20 16:03 Ultram PO HS PRN Pain Rated 4-6 Progress Note: A&P Assessment and Plan (1) Stenosis of left internal carotid artery: Code(s): I65.22 - Occlusion and stenosis of left carotid artery Status: Acute (2) A-fib: Code(s): I48.91 - Unspecified atrial fibrillation Status: Acute (3) History of CVA (cerebrovascular accident): Code(s): Z86.73 - Personal history of transient ischemic attack (TIA), and cerebral infarction without residual deficits Status: Acute (4) Fatigue: Code(s): R53.83 - Other fatigue Status: Acute (5) Gastro-esophageal reflux disease without esophagitis: Code(s): K21.9 - Gastro-esophageal reflux disease without esophagitis Status: Acute (6) History of CVA with res
[2020-03-30 20:02] VITALS: PULSE 74
[2020-03-30] MEDS: ATORVASTATIN 40 MG TABLET 80 MG PO (20:05)
[2020-03-30] MEDS: clonazePAM (*CRX) 0.5 MG TABLET 2 MG PO (20:05)
[2020-03-30 22:00] VITALS: BP 109/49; PULSE 85; RESP 18; TEMP 36.7; O2SAT 97
[2020-03-31 05:51] LABS: Basophils Absolute Auto 0.1 K/mm3 (0.0-0.1); Basophils Percent Auto 1.3 % (0.2-1.2); Eosinophils Absolute Auto 0.3 K/mm3 (0-0.3); Eosinophils Percent Auto 5.4 % (0-4.4); Hematocrit 39.4 % (37.0-47.0); Hemoglobin 13.1 g/dL (12.0-15.0); Lymphocytes Absolute Auto 2.31 K/mm3 (0.9-3.2); Lymphocytes Percent Auto 41.8 % (18.3-44.2); Mean Corpuscular HGB Conc 33.2 g/dl (32-36); Mean Corpuscular Hemoglobin 33.3 pg (26-34); Mean Corpuscular Volume 100.3 fl (80-100); Mean Platelet Volume 10.4 fl (7.4-10.4); Monocytes Absolute Auto 0.5 K/mm3 (0.1-0.6); Monocytes Percent Auto 9.2 % (2.6-8.5); Neutrophils Absolute Auto 2.3 K/mm3 (1.3-6.7); Neutrophils Percent Auto 42.3 % (45.5-73.1); Platelet Count Result 246 k/mm3 (150-375); Red Blood Count 3.93 M/mm3 (4.2-5.4); Red Cell Distribution Width 12.4 % (11.5-14.5); White Blood Count 5.5 K/mm3 (4.5-10.0)
[2020-03-31 06:00] VITALS: BP 151/75; PULSE 90; RESP 19; TEMP 36; O2SAT 99
[2020-03-31 06:06] LABS: Anion Gap 7 mmol/L (8-16); Blood Urea Nitrogen 18 mg/dL (7-17); Calcium 8.7 mg/dL (8.4-10.2); Carbon Dioxide 29 mmol/L (22-30); Chloride 103 mmol/L (98-107); Estimated CRCL calculation 50 ml/min; Estimated Glomerular Filt Rate > 60; Glucose 111 mg/dL (65-105); Potassium 3.9 mmol/L (3.4-5.0); Sodium 139 mmol/L (137-145)
[2020-03-31 08:20] VITALS: PULSE 84; RESP 18
[2020-03-31 08:24] VITALS: PULSE 86
[2020-03-31] MEDS: METOPROLOL TARTRATE 25 MG TABLET 75 MG PO ×2 (08:24→20:21)
[2020-03-31] MEDS: SPIRONOLACTONE 25 MG TABLET PO (08:24)
[2020-03-31] MEDS: ESCITALOPRAM OXALATE 5 MG TABLET PO (08:24)
[2020-03-31] MEDS: APIXABAN 5 MG TABLET PO ×2 (08:24→20:23)
[2020-03-31] MEDS: PANTOPRAZOLE SOD SESQUIHYDRATE 20 MG TAB PO (08:24)
--- NOTE | 2020-03-31 11:37 | WPDNEURORHBP ---
Subjective Date/time seen: 03/31/20 11:37 Interval history: this patient is here with left hemispheric stroke with the right-sided weakness and also had decreased dexterity of the left side also cognitive deficit related to the left hemispheric stroke she denies any headache nausea vomiting chest pain shortness of breath fever chills sore throat Review of Systems Review of Systems: All systems reviewed & are unremarkable except as noted in HPI and below Functional Status Ambulation Ability Ability to Ambulate 10 Feet: Independent Ability to Ambulate 50 Feet With 2 Turns: Independent Ability to Ambulate 150 Feet: Independent Ambulation Assistive Devices: Walker, Wheeled Transfers Ability Ability to Transfer In/Out of Chair: Independent Exam Narrative: Exam Narrative: patient is awake alert well oriented times place and person has left hemispheric deficit with almost near normal speech and language functions mild cognitive deficit right-sided weakness and left sided decreased dexterity The eyes are unremarkable ENT exam is unremarkable chest is clear abdomen is soft not tender extremities revealed no deformities reflexes are preserved she is needing assistance all the activities of daily living cardiac rhythm is normal and intact and no symptoms are reported Objective Data Vital Signs Vital Signs: Vital Signs - 24 hr 03/30/20 14:00 03/30/20 20:02 03/30/20 22:00 Temperature 37.0 C 36.7 C Pulse Rate 100 74 85 Respiratory Rate 20 18 Blood Pressure 109/78 109/49 L Pulse Oximetry 96 97 03/31/20 06:00 03/31/20 08:20 03/31/20 08:24 Temperature 36.0 C L Pulse Rate 90 84 86 Respiratory Rate 19 18 Blood Pressure 151/75 H Pulse Oximetry 99 Intake/Output Intake/Output: Intake & Output 03/28/20 03/29/20 03/30/20 03/31/20 23:59 23:59 23:59 23:59 Intake Total 720 840 720 360 Balance 720 840 720 360 Meds/Results Medications: Active Medications Generic Name Dose Route Start Last Admin Trade Name Freq PRN Reason Stop Dose Admin Apixaban 5 mg 03/23/20 22:15 03/31/20 08:24 Eliquis PO 5 mg Q12HR ISAAC Administration Atorvastatin Calcium 80 mg 03/23/20 21:30 03/30/20 20:05 Lipitor PO 80 mg HS ISAAC Administration Clonazepam 2 mg 03/23/20 21:00 03/30/20 20:05 Klonopin Tablet PO 2 mg HS ISAAC Administration Escitalopram Oxalate 5 mg 03/24/20 09:00 03/31/20 08:24 Lexapro PO 5 mg DAILY ISAAC Administration Metoprolol Tartrate 75 mg 03/23/20 21:30 03/31/20 08:24 Lopressor PO 75 mg Q12HR ISAAC Administration Pantoprazole Sodium 20 mg 03/24/20 09:00 03/31/20 08:24 Protonix PO 20 mg QAM ISAAC Administration Spironolactone 25 mg 03/24/20 09:00 03/31/20 08:24 Aldactone PO 25 mg DAILY ISAAC Administration Tramadol HCl 50 mg 03/24/20 16:03 Ultram PO HS PRN Pain Rated 4-6 Labs Labs: Laboratory Results - last 24 hr 03/31/20 03/31/20 05:04 05:04 WBC 5.5 RBC 3.93 L Hgb 13.1 Hct 39.4 MCV 100.3 H MCH 33.3 MCHC 33.2 RDW 12.4 Plt Count 246 MPV 10.4 Immature Gran % (Auto) 0.0 Neut % (Auto) 42.3 L Lymph % (Auto) 41.8 [place] % (Auto) 9.2 H Eos % (Auto) 5.4 H Baso % (Auto) 1.3 H Lymph # (Auto) 2.31 [place] # (Auto) 0.5 Eos # (Auto) 0.3 Baso # (Auto) 0.1 Abs Immat Gran (auto) 0.00 Absolute Neuts (auto) 2.3 Absolute Nucleated RBC 0.0 Nucleated RBC % 0.0 Sodium 139 Potassium 3.9 Chloride 103 Carbon Dioxide 29 Anion Gap 7 L BUN 18 H Creatinine 0.80 Estim Creat Clear Calc 50 Estimated GFR > 60 Glucose 111 H Calcium 8.7 Progress Note: A&P Assessment and Plan (1) Stenosis of left internal carotid artery: Code(s): I65.22 - Occlusion and stenosis of left carotid artery Status: Acute (2) A-fib: Code(s): I48.91 - Unspecified atrial fibrillation Status: Acute (3) History of CVA (cerebrovascular accident): [place]
[2020-03-31 14:00] VITALS: BP 131/93; PULSE 99; RESP 18; TEMP 36.8; O2SAT 98
[2020-03-31 20:21] VITALS: PULSE 68
[2020-03-31] MEDS: clonazePAM (*CRX) 0.5 MG TABLET 2 MG PO (20:21)
[2020-03-31] MEDS: ATORVASTATIN 40 MG TABLET 80 MG PO (20:21)
[2020-03-31 22:00] VITALS: BP 124/91; PULSE 80; RESP 18; TEMP 36.7; O2SAT 97
[2020-04-01 06:00] VITALS: BP 152/95; PULSE 80; RESP 18; TEMP 36.9; O2SAT 99
[2020-04-01 08:50] VITALS: PULSE 78
[2020-04-01] MEDS: METOPROLOL TARTRATE 25 MG TABLET 75 MG PO (08:50)
[2020-04-01] MEDS: PANTOPRAZOLE SOD SESQUIHYDRATE 20 MG TAB PO (08:50)
[2020-04-01] MEDS: ESCITALOPRAM OXALATE 5 MG TABLET PO (08:50)
[2020-04-01] MEDS: APIXABAN 5 MG TABLET PO (08:51)
[2020-04-01] MEDS: SPIRONOLACTONE 25 MG TABLET PO (08:51)
[2020-04-01 08:56] VITALS: PULSE 78; RESP 18; O2SAT 99
--- NOTE | 2020-04-01 12:56 | WPDNEURORHBP ---
Subjective Date/time seen: 04/01/20 12:56 Interval history: this 69-year-old woman is here with left hemispheric stroke and disconnection syndrome related to left cerebral hemispheric deficit not only responsible for the right-sided hemiparesis but also decreased dexterity of the dexterity of the left side she denies any headache nausea vomiting chest pain shortness of breath fever chills sore throat The patient does have a left internal carotid occlusion and also history of atrial fibrillation and is on Eliquis when she came to us she is going to be discharged today with home health services and the recommendation to follow-up at least 1 time with the neurologist who treated her initially at the tertiary care facility Review of Systems Review of Systems: All systems reviewed & are unremarkable except as noted in HPI and below Functional Status Ambulation Ability Ability to Ambulate 10 Feet: Independent Ability to Ambulate 50 Feet With 2 Turns: Independent Ability to Ambulate 150 Feet: Independent Ambulation Assistive Devices: Walker, Wheeled Transfers Ability Ability to Transfer In/Out of Chair: Independent Exam Narrative: Exam Narrative: the patient is awake and alert oriented x3 however does have speech and cognitive deficit and right-sided weakness for which she needs the assistance and also decreased dexterity on the left side Const: General: cooperative, healthy appearing and well developed HENMT: Head: normal to inspection and normocephalic Ears: hearing grossly normal bilaterally Eyes: General: appearance normal, both eyes and all related structures Visual Engle: normal visual engle by confrontation Pupils: Equal, round and reactive pupils present Neck: Neck: normal visual inspection and full ROM Chest: Chest palpation & inspection: normal inspection of the chest and normal palpation of entire chest wall Resp: Effort & Inspection: normal respiratory effort and able to speak in complete sentences Cardio: Jugular venous distension: no JVD and JVD Rate: regular rate Rhythm: regular rhythm GI: Inspection: normal to inspection Back/Spine/Pelvis: Back: no CVA tenderness Skin: General skin exam: normal color and no rashes or lesions noted Neuro: Other: patient is awake and alert does have right-sided weakness and decreased dexterity of the left side with brisk reflexes on the left than the right needing assistance all the activities of daily living Extrem: General: normal to inspection and full ROM Psych: Appearance: grossly normal Objective Data Vital Signs Vital Signs: Vital Signs - 24 hr 03/31/20 14:00 03/31/20 20:21 03/31/20 22:00 Temperature 36.8 C 36.7 C Pulse Rate 99 68 80 Respiratory Rate 18 18 Blood Pressure 131/93 H 124/91 H Pulse Oximetry 98 97 04/01/20 06:00 04/01/20 08:50 04/01/20 08:56 Temperature 36.9 C Pulse Rate 80 78 78 Respiratory Rate 18 18 Blood Pressure 152/95 H Pulse Oximetry 99 99 Intake/Output Intake/Output: Intake & Output 03/29/20 03/30/20 03/31/20 04/01/20 23:59 23:59 23:59 23:59 Intake Total 472 921 0728 240 Balance 850 492 5569 240 Meds/Results Medications: Active Medications Generic Name Dose Route Start Last Admin Trade Name Freq PRN Reason Stop Dose Admin Apixaban 5 mg 03/23/20 22:15 04/01/20 08:51 Eliquis PO 5 mg Q12HR ISAAC Administration Atorvastatin Calcium 80 mg 03/23/20 21:30 03/31/20 20:21 Lipitor PO 80 mg HS ISAAC Administration Clonazepam 2 mg 03/23/20 21:00 03/31/20 20:21 Klonopin Tablet PO 2 mg HS ISAAC Administration Escitalopram Oxalate 5 mg 03/24/20 09:00 04/01/20 08:50 Lexapro PO 5 mg DAILY ISAAC Administration Metoprolol Tartrate 75 mg 03/23/20 21:30 04/01/20 08:50 Lopressor PO 75 mg Q12HR ISAAC Administration Pantoprazole Sodium 20 mg 03/24/20 09:00 04/01/20 08:50 Protonix PO 20 mg QAM ISAAC Administration Spironolactone 25 mg 03/24/20 09:00
--- NOTE | 2020-04-05 14:49 | PM.DS ---
DS: Admitting Diagnosis Admitting Diagnosis Admitting Diagnosis: CVA DS: Discharge Diagnosis Discharge Diagnosis (1) Right hemiparesis: Code(s): G81.91 - Hemiplegia, unspecified affecting right dominant side Status: Acute (2) Stenosis of left internal carotid artery: Code(s): I65.22 - Occlusion and stenosis of left carotid artery Status: Acute (3) A-fib: Code(s): I48.91 - Unspecified atrial fibrillation Status: Acute (4) History of CVA (cerebrovascular accident): Code(s): Z86.73 - Personal history of transient ischemic attack (TIA), and cerebral infarction without residual deficits Status: Acute (5) Fatigue: Code(s): R53.83 - Other fatigue Status: Acute (6) Gastro-esophageal reflux disease without esophagitis: Code(s): K21.9 - Gastro-esophageal reflux disease without esophagitis Status: Acute (7) History of CVA with residual deficit: Code(s): I69.30 - Unspecified sequelae of cerebral infarction Status: Acute (8) Hyperglycemia: Code(s): R73.9 - Hyperglycemia, unspecified Status: Acute DS: Summary Hospital Course Reason for hospitalization: this very nice 69-year-old woman was admitted due to stroke primarily along with the other medical issues as mentioned above with the speech defect and right-sided weakness along with the decreased dexterity of the left side she improved quite a bit after receiving the PT OT and speech and was able to be sent home with home health with the family members to supervise her Hospital Course: eating independent, oral hygiene supervision, toileting independent, bathing supervision, upper body dressing setup, lower body dressing set up, foot where supervision, or rolling in bed independent, sitting to lying independent, lying to sitting independent, sit to stand independent, chair transfers independent, toilet transfers independent, car transfers independent walking 10 feet independent walking 50 feet with 2 turns independent walking 150 feet independent, walking 10 feet uneven surfaces independent, Boyle step independent, 4 steps independent, 12 steps independent, became object independent, wheelchair not applicable patient was stable enough and improved enough to be sent home with home health to follow Time Spent with Patient Time attestation: Total time spent providing and/or coordinating discharge services: Exam Narrative: Exam Narrative: the patient was significantly improved and stable enough to be discharged home with home health who was oriented x3 with mild cognitive deficit with significantly improved right and left-sided hemiparesis Eyes ear nose throat normal, neck is supple Kernig's and Brudzinski signs are negative lungs are clear to auscultation cardiac served vascular examination was stable and improved extremities reveal no deformities abdomen is is soft on tenderness Discharge Plan Discharge Attending physician on discharge: Carlton Meneses Discharging Clinician: Carlton Meneses Anticipated Discharge Date/Time: 04/01/20 13:03 Patient Disposition: Home Health Service Activity: may shower and no driving Diet: as tolerated Discharge Instructions: Per Care Coordination: Home Health services have been arranged through [facility]. [facility] can be contacted at [phone]. Patient Instructions: Antibiotic Form, Apixaban (By mouth), Self Care Measures After a Stroke (DC), Stroke (DC) Stand Alone Forms: General Discharge Information Follow-up/Referrals: Carlton Meneses MD [Physician] - Call for Appointment Keenan Holm DO [Primary Care Provider] - Follow Up with Primary Dr (Follow up with matcher offbearer as needed) Discharge Medications: New Eliquis 5 mg Tablet 5 mg PO Q12HR Qty: 60 RF: 0 pantoprazole [Protonix] 20 mg Tablet,Delayed Release (Dr/Ec) 20 mg PO QAM Qty: 30 RF: 0 Continued atorvastatin 80 mg Tablet 80 mg PO HS Qty
== END 2020-04-01 14:00 | disposition home health service (06) | DRG 57 ==
PROVIDERS: Admitting Provider Psychiatry & Neurology Neurology; PCP Internal Medicine; Visit Provider Psychiatry & Neurology Neurology
DX: I69.351 Hemiplegia and hemiparesis following cerebral infarction affecting right dominant side (principal); I69.320 Aphasia following cerebral infarction; I69.311 Memory deficit following cerebral infarction; I65.22 Occlusion and stenosis of left carotid artery; R53.83 Other fatigue; E78.5 Hyperlipidemia, unspecified; E03.9 Hypothyroidism, unspecified; I48.91 Unspecified atrial fibrillation; I10 Essential (primary) hypertension; K21.9 Gastro-esophageal reflux disease without esophagitis; R73.9 Hyperglycemia, unspecified; Z79.01 Long term (current) use of anticoagulants; R00.0 Tachycardia, unspecified
CPT/HCPCS: 36415; 80048; 80061; 85025; 92507; 92523; 97110; 97116; 97161; 97166; 97530; 97535; A9270

== ENCOUNTER 2020-04-08 12:11 | Inpatient (IN) | payer MEDICARE, SELFPAY ==
[2020-04-08] VITALS (31 sets, daily range): BP systolic 137–183; BP diastolic 84–128; PULSE 83–129; RESP 13–28; TEMP 36.4–37.2; O2SAT 86–99; BMI 29.2
--- NOTE | ~2020-04-08 | CT_ITS ---
EXAMINATION: CT brain wo con DATE: 04/08/2020 13:20 INDICATION: Right-sided hemiparesis. TECHNIQUE: Computed tomography (CT) of the head was performed without intravenous contrast. The mA wa s adjusted according to patient size. Iterative reconstruction technique was employed. The dose-lengt h product was 605.33 mGy-cm. COMPARISON: Head CT 08/06/2019 FINDINGS: There are scattered areas of low attenuation in the cerebral white matter. There are old in farcts in the frontal and parietal lobes bilaterally. There is no intracranial hemorrhage, acute infa rction, or abnormal intracranial mass lesion. There is an old lacunar infarct in left caudate nucleus . The ventricles are normal in size. The orbits are normal. There are mucous retention cysts in the l eft maxillary sinus and right sphenoid sinus. The mastoid air cells are normal. . IMPRESSION: 1. Old infarcts in the bilateral frontal and parietal lobes and left caudate nucleus. 2. Stable moderate nonspecific cerebral white matter disease, which likely represents chronic small v essel ischemic disease. Reviewed, dictated and finalized at location A. IMPRESSION: 1. Old infarcts in the bilateral frontal and parietal lobes and left caudate nu cleus. 2. Stable moderate nonspecific cerebral white matter disease, which likely repr esents chronic small vessel ischemic disease.
--- NOTE | ~2020-04-08 | XR_ITS ---
EXAMINATION: XR chest 1V DATE: 04/08/2020 13:24 INDICATION: Hypertension presenting with right-sided weakness. TECHNIQUE: frontal view of the chest was obtained. COMPARISON: Chest radiograph dated 04/20/2018 FINDINGS: Calcified nodule in the right upper lung zone consistent with old granulomatous disease. Mild streaky left basilar atelectasis. No pulmonary edema, pleural effusion or pneumothorax. The cardiomediastina l silhouette is normal. Thoracic dextroscoliosis with moderate spondylosis. IMPRESSION: 1. No acute cardiopulmonary disease. Reviewed, dictated and finalized at location B.
--- NOTE | ~2020-04-08 | CT_ITS ---
EXAMINATION: CTA brain carotid DATE: 04/09/2020 13:06 INDICATION: New stroke. TECHNIQUE: Computed tomographic angiography (CTA) of the head was performed without and with 100 mL O [id number] intravenous contrast. CTA of the neck was performed with intravenous contrast. Automated exposure control and iterative reconstruction technique were employed. The dose-length product was 1 613.13 mGy-cm. Maximum intensity projection and volume rendered 3D-reconstructions were created by krystin pringle technologist on a separate workstation. COMPARISON: Head CT 04/08/2020, brain MRI 04/09/2020 FINDINGS: HEAD CTA: There are old infarcts in the bilateral frontal and parietal lobes. There are acute infarct s in the left frontal and parietal lobes. There is an old infarct in left caudate nucleus. There are scattered areas of low attenuation in the cerebral white matter. There is no intracranial hemorrhage or abnormal mass lesion. The ventricles are normal in size. There is a mucous retention cyst in left maxillary sinus. There is mild mucosal thickening in the sphenoid sinuses. The orbits are normal. The mastoid air cells are normal. Left vertebral artery is dominant. There is no significant stenosis of basilar artery or the posterior cerebral arteries. There is total occlusion of distal left internal carotid artery. There is moderate stenosis of distal right internal carotid artery. There is no signi ficant stenosis of the anterior or middle cerebral arteries. Anterior communicating artery is normal. The posterior communicating arteries are normal. There is no aneurysm. NECK CTA: There are no pathologically enlarged lymph nodes. There is no significant stenosis of the v ertebral arteries. There is plaque in the proximal internal carotid arteries. There is 0% stenosis of the proximal right internal carotid artery relative to normal distal artery lumen diameter (NASCET c riteria). There is 0% stenosis of the proximal left internal carotid artery relative to normal distal artery lumen diameter. There is severe cervical spondylosis. IMPRESSION: 1. Acute infarcts in the left frontal and parietal lobes. 2. Old infarcts in the bilateral frontal and parietal lobes and left caudate nucleus. 3. Moderate nonspecific cerebral white matter disease, which likely represents chronic small vessel i schemic disease. 4. Total occlusion of intracranial left internal carotid artery. Moderate stenosis of intracranial ri ght internal carotid artery. 5. 0% stenosis of the proximal internal carotid arteries relative to normal distal artery lumen diame ters (NASCET criteria). Reviewed, dictated and finalized at location A. IMPRESSION: 1. Acute infarcts in the left frontal and parietal lobes. 2. Old infarcts in the bilateral frontal and parietal lobes and left caudate nu cleus. 3. Moderate nonspecific cerebral white matter disease, which likely represents chronic small vessel ischemic disease. 4. Total occlusion of intracranial left internal carotid artery. Moderate steno sis of intracranial right internal carotid artery. 5. 0% stenosis of the proximal internal carotid arteries relative to normal dis alma artery lumen diameters (NASCET criteria).
--- NOTE | ~2020-04-08 | MR_ITS ---
EXAMINATION: MR brain/brain stem wo/w con DATE: 04/09/2020 11:47 INDICATION: Right hemiparesis. TECHNIQUE: Magnetic resonance imaging (MRI) of the brain and brainstem was performed without and with 14 mL MultiHance intravenous contrast. Sequences included sagittal and axial T1-weighted FSE, axial diffusion-weighted FS EPI, axial T2*-weighted GRE, axial T2-weighted FLAIR Propeller, and axial T2-we ighted Propeller. Postcontrast sequences included axial and coronal T1-weighted FSE. Apparent diffusi on coefficient (ADC) maps were created. COMPARISON: Brain MRI 03/30/2018, head CT 04/08/2020 FINDINGS: There are patchy acute infarcts in the left frontal and parietal lobes. There is no intracr anial hemorrhage or abnormal mass lesion. There are old infarcts in the bilateral frontal and parieta l lobes. There are scattered areas of low attenuation in the cerebral white matter. There is an old i nfarct in left caudate nucleus. The ventricles are normal in size. The orbits are normal. There is a mucous retention cyst in left maxillary sinus. There is mild mucosal thickening in the sphenoid sinu ses. The mastoid air cells are normal. IMPRESSION: 1. Acute infarcts in the left frontal and parietal lobes. 2. Old infarcts in the bilateral frontal and parietal lobes and left caudate nucleus. 3. Moderate nonspecific cerebral white matter disease, which likely represents chronic small vessel i schemic disease, worsened from 03/30/2018. Reviewed, dictated and finalized at location A. IMPRESSION: 1. Acute infarcts in the left frontal and parietal lobes. 2. Old infarcts in the bilateral frontal and parietal lobes and left caudate nu cleus. 3. Moderate nonspecific cerebral white matter disease, which likely represents chronic small vessel ischemic disease, worsened from 03/30/2018.
--- NOTE | 2020-04-08 12:45 | ECG_ITS ---
Measurements Intervals [place] Rate: 115 P: [place]: 0 QRS: 35 QRSD: 80 T: 51 QT: 328 QTc: 454 Interpretive Statements ATRIAL FIBRILLATION WITH RAPID VENTRICULAR RESPONSE BASELINE ARTIFACT- I, III, AVL, AVF ABNORMAL ECG Electronically Signed On 04-08-2020 13:04:50 CDT by Darren Chauhan D.O.
[2020-04-08 12:57] LABS: Glucose Point of Care 102 (65-105)
[2020-04-08 13:09] LABS: Basophils Absolute Auto 0.1 K/mm3 (0.0-0.1); Basophils Percent Auto 0.7 % (0.2-1.2); Eosinophils Absolute Auto 0.2 K/mm3 (0-0.3); Hematocrit 43.4 % (37.0-47.0); Hemoglobin 14.8 g/dL (12.0-15.0); Immature Granulocyte Absolute 0.01 K/mm3 (0.00-0.031); Immature Granulocyte Percent A 0.1 % (0-0.5); Lymphocytes Absolute Auto 1.77 K/mm3 (0.9-3.2); Lymphocytes Percent Auto 25.4 % (18.3-44.2); Mean Corpuscular HGB Conc 34.1 g/dl (32-36); Mean Corpuscular Hemoglobin 32.7 pg (26-34); Mean Platelet Volume 10.1 fl (7.4-10.4); Monocytes Absolute Auto 0.6 K/mm3 (0.1-0.6); Monocytes Percent Auto 8.3 % (2.6-8.5); Neutrophils Absolute Auto 4.4 K/mm3 (1.3-6.7); Neutrophils Percent Auto 62.5 % (45.5-73.1); Platelet Count Result 322 k/mm3 (150-375); Red Blood Count 4.52 M/mm3 (4.2-5.4); Red Cell Distribution Width 12.7 % (11.5-14.5)
--- NOTE | 2020-04-08 13:13 | PC.NURSE ---
to CT via stretcher.
--- NOTE | 2020-04-08 13:15 | ED.GENADULT ---
HPI - General Adult General Chief complaint: Recheck/Abnormal Lab/Rx Stated complaint: HIGH BLOOD PRESSURE Time Seen by Provider: 04/08/20 12:21 History of Present Illness HPI narrative: Patient is a 69-year-old female who presents ER with concern for elevated blood pressures. Reports that her diastolic is gone above 110 mmHg for the last couple days. However there is also concerned that patient has had some increased right-sided weakness since yesterday afternoon. She is dragging her right foot when she walks. She is recently had a stroke and has been started on Eliquis. She has been getting physical therapy and occupational therapy at home. Patient has mild expressive aphasia from her previous CVA. No additional complaints at this time. Patient has no chest pain or shortness of breath. Just returned a Holter monitor. She does have known A. fib. Related Data Home Medications Medication Instructions Recorded Confirmed clonazepam 2 mg PO HS 04/08/20 04/08/20 Allergies Allergy/AdvReac Type Severity Reaction Status Date / Time No Known Allergies Allergy Verified 04/08/20 12:38 Review of Systems Review of Systems: All systems reviewed & are unremarkable except as noted in HPI and below Cardiovascular: Cardiovascular: Denies chest pain, Denies rapid heart rate and Denies radiating jaw, neck or arm pain Neurologic: Denies headache(s), Reports focal weakness and Denies numbness PMFSH Past Medical History Medical History (Updated 04/09/20 @ 00:15 by Santiago Ayers MD) Atrial fibrillation Cerebrovascular accident History of several strokes with most recent stroke being 03/18/2020, with resultant expressive aphasia and right hemiplegia. Current use of half-way anticoagulation Dyslipidemia Esophageal stricture Status post esophageal dilatation. Gastroesophageal reflux disease Hypertension Stenosis of left internal carotid artery Syncope Surgical History Surgical History (Updated 04/08/20 @ 20:02 by Sarah Mccallum PA-C) History of section History of dilation and curettage Family History Family History Mother Patient's mother is Diabetes mellitus, Onset Age: 70 Hypertension, Onset Age: 70 Family history of malignant neoplasm of breast in first degree relative, Onset Age: 70 Father Patient's father is Diabetes mellitus, Onset Age: 80 Hypertension, Onset Age: 80 Family history of cardiovascular disease, Onset Age: 80 Social History Social History (Updated 04/08/20 @ 20:03 by Sarah Mccallum PA-C) Social History: Surrogate decision maker: Yanelis Baugh, daughter. Code status: Full code. Smoking status: Never smoker Second hand tobacco smoke exposure: No Alcohol intake: never Substance use: never Additional living arrangements comments: Lives in her own home in [place]. Family now staying with her 24 hours a day. Additional occupation/education comments: Retired commercial real estate paralegal. Gender identity (if verbalized by the patient): Female Spiritual care concerns: No Exam Narrative: Exam Narrative: GENERAL: Well-appearing, well-nourished, and in no acute distress. HEAD: Normocephalic, atraumatic. EYES: PERRLA and EOMI. CHEST: Clear to auscultation. No respiratory distress. HEART: Irregularly irregular rate and rhythm. Normal peripheral pulses. ABDOMEN: Soft, nontender, nondistended. EXTREMITIES: Normal range of motion. No edema. Mild spasticity to the RUE/RLE SKIN: Warm, dry, no rash. NEURO: Alert and oriented x3. Difficulty with heel to barton testing RLE. No drift. Residual expressive aphasia (mild). Course Course Emergency Course: Admit to the hospitalist service. Will attempt better blood pressure and heart rate control. Patient did receive Lopressor IV with improvement of blood pressure here. Will repeat neurologic imaging with MRI a
[2020-04-08 13:21] LABS: INR 1.2; Prothrombin Time 14.6 Seconds (11.1-14.7)
[2020-04-08 13:22] LABS: Partial Thromboplastin Time 39.7 SECONDS (22.3-36.8)
[2020-04-08 13:28] LABS: Anion Gap 8 mmol/L (8-16); Blood Urea Nitrogen 19 mg/dL (7-17); Calcium 9.7 mg/dL (8.4-10.2); Carbon Dioxide 32 mmol/L (22-30); Chloride 99 mmol/L (98-107); Estimated CRCL calculation 45 ml/min; Estimated Glomerular Filt Rate > 60; Glucose 107 mg/dL (65-105); Potassium 4.4 mmol/L (3.4-5.0); Sodium 139 mmol/L (137-145)
[2020-04-08 13:40] LABS: Troponin I < 0.012 ng/mL (0.000-0.034)
[2020-04-08] MEDS: METOPROLOL TARTRATE INJ 5 MG/5 ML VIAL IV PUSH (13:54)
--- NOTE | 2020-04-08 15:30 | PC.NURSE ---
Report to LUANNE Shaw, to continue care. Awaiting bed assignment.
--- NOTE | 2020-04-08 16:00 | PM.IMHP ---
H&P: HPI History of Present Illness Date/Time: 04/08/20 16:00 Chief complaint: Elevated blood pressure reading. Narrative: Janessa Foster is a 69-year-old female with hypertension, atrial fibrillation, carotid artery stenosis, and history of stroke who presented to the emergency department earlier today for evaluation of a reported elevated blood pressure reading. Her most recent stroke was on 03/18/2020 at which time she presented to an outside facility for evaluation of right-sided weakness and speech impairment. Imaging reportedly showed occlusion of the left internal carotid artery and she was transferred to [facility] for possible intervention, however her deficits were minimal on arrival and no intervention was undertaken. She was sent to [facility] for rehab and she was discharged home within the past 1 week or so. She continues to have word-finding issues and right-sided weakness from the stroke however the patient and her daughter indicate to me that she was doing quite well at [facility] and is up ambulating with a walker. Her daughters have been rotating spending time with her, and there is now someone at home with her 24 hours a day. Over the past couple of days they have noticed that the patient seems to be more clumsy with her right hand and also seems to have more of a difficult time raising her right foot when ambulating. In any regard, a home health was visiting today and she was instructed to come to the emergency department after her blood pressure was reportedly 177/115. Family members are diligent about keeping a blood pressure log and it looks like her pressures typically run in the 130s to 150s over 80s to 90s, however over the past couple of days they have been ?creeping up? despite her compliance with medication. At the time my evaluation she has no complaints and specifically denies headache, vertigo, auditory and visual changes, paresthesias, chest pain, palpitations, shortness of breath, nausea, and vomiting. Review of Systems Review of Systems: Narrative: Twelve systems were reviewed with pertinent positives and negatives as per HPI. No fever, chills, or sweats. No recent cold or flu symptoms. She denies sick contacts. No cough or shortness of breath. She has not had any issues with swallowing and denies concerns for aspiration. It is my understanding that she did have some speech therapy during her hospitalization after this last stroke. No diarrhea. No dysuria. Except as documented, all other systems were reviewed and are negative. [facility] Past Medical History Medical History (Updated 04/08/20 @ 20:05 by Sarah Mccallum PA-C) Atrial fibrillation Cerebrovascular accident History of several strokes with most recent stroke being 03/18/2020, with resultant expressive aphasia and right hemiplegia. Current use of senior care anticoagulation Dyslipidemia Esophageal stricture Status post esophageal dilatation. Gastroesophageal reflux disease Hypertension Stenosis of left internal carotid artery Syncope Surgical History Surgical History (Updated 04/08/20 @ 20:02 by Sarah Mccallum PA-C) History of section History of dilation and curettage Family History Family History Mother Patient's mother is Diabetes mellitus, Onset Age: 70 Hypertension, Onset Age: 70 Family history of malignant neoplasm of breast in first degree relative, Onset Age: 70 Father Patient's father is Diabetes mellitus, Onset Age: 80 Hypertension, Onset Age: 80 Family history of cardiovascular disease, Onset Age: 80 Social History Social History (Updated 04/08/20 @ 20:03 by Sarah Mccallum PA-C) Social History: Surrogate decision maker: Yanelis Baugh, daughter. Code status: Full code. Smoking status: Never smoker Second hand tobacco smoke exposure: No Alcohol intake: never Substance us
--- NOTE | 2020-04-08 17:51 | PC.NURSE ---
This patient, Janessa Foster, was admitted to 3 Med Surg Room 303-01. Patient/family oriented to hospital policies and general routines including ID bracelet, bed and alarms, visiting hours, pain management, procedures, bathroom and other care routines, personal items, smoking policy, room service/diet, and visiting hours. Information on how to activate the Rapid Response Team has been discussed. Patient/Family are encouraged to report perceived risks to care and to ask questions if they do not understand what they are told or what they should do.
--- NOTE | 2020-04-08 18:43 | PC.NURSE ---
Pt sees Dr. Young for cardiology and Dr. Sosa for GI.
[2020-04-08] MEDS: hydrALAZINE HCL 20 MG/ML VIAL 10 MG IV PUSH ×2 (18:54→22:27)
[2020-04-08] MEDS: clonazePAM (*CRX) 0.5 MG TABLET 2 MG PO (20:29)
[2020-04-08] MEDS: METOPROLOL TARTRATE 25 MG TABLET 75 MG PO (20:30)
[2020-04-08] MEDS: APIXABAN 5 MG TABLET PO (20:30)
[2020-04-08] MEDS: ATORVASTATIN 40 MG TABLET 80 MG PO (20:30)
[2020-04-09] VITALS (7 sets, daily range): BP systolic 131–136; BP diastolic 78–88; PULSE 86–117; RESP 18; TEMP 36.3–36.7; O2SAT 97
[2020-04-09 06:49] LABS: Alanine Aminotransferase 35 U/L (4-35); Albumin Level 3.9 g/dL (3.5-5.1); Alkaline Phosphatase 62 U/L (38-126); Anion Gap 7 mmol/L (8-16); Aspartate Amino Transferase 25 U/L (14-36); Bilirubin,Total 0.6 mg/dL (0.2-1.3); Blood Urea Nitrogen 17 mg/dL (7-17); Calcium 9.2 mg/dL (8.4-10.2); Carbon Dioxide 32 mmol/L (22-30); Chloride 101 mmol/L (98-107); Estimated CRCL calculation 50 ml/min; Estimated Glomerular Filt Rate > 60; Glucose 138 mg/dL (65-105); Sodium 140 mmol/L (137-145)
[2020-04-09] MEDS: METOPROLOL TARTRATE 25 MG TABLET 75 MG PO (08:23)
[2020-04-09] MEDS: PANTOPRAZOLE SOD SESQUIHYDRATE 20 MG TAB PO (08:23)
[2020-04-09] MEDS: ESCITALOPRAM OXALATE 5 MG TABLET PO (08:23)
[2020-04-09] MEDS: SPIRONOLACTONE 25 MG TABLET PO (08:24)
[2020-04-09] MEDS: APIXABAN 5 MG TABLET PO (08:24)
[2020-04-09 08:59] LABS: Hemoglobin A1C 6.4 % (<5.7)
--- NOTE | 2020-04-09 14:07 | PM.TDS ---
Transfer Discharge Sum: Prov Provider Date of admission: 04/08/20 14:51 Primary care physician: Keenan Holm DO Admitting clinician: Vasu Bowers MD Consults: 04/08/20 14:53 Consult to Physician Routine Comment: Spoke with Dr Meneses @ [phone] (,[place]) Consulting Provider: Carlton Meneses call center operations manager/ group to consult: naseer Reason for consultation: right sided weakness Has provider been notified: Yes 04/09/20 13:40 Consult to Physician Routine Comment: Consulting Provider: call center operations manager/MD group to consult: heart care group Reason for consultation: afib rvr, new stroke Has provider been notified: No Attending physician on discharge: Ermias Mcgowan Discharging clinician: Meka Dhillon Receiving physician/facility: [facility] Dr. Dickerson DS: Admitting Diagnosis Admitting Diagnosis Admitting Diagnosis: Elevated blood pressure reading. DS: Discharge Diagnosis Discharge Diagnosis (1) Acute CVA (cerebrovascular accident): Code(s): I63.9 - Cerebral infarction, unspecified Status: Acute (2) Poorly-controlled hypertension: Code(s): I10 - Essential (primary) hypertension Status: Acute (3) Recent cerebrovascular accident: Code(s): Z86.73 - Personal history of transient ischemic attack (TIA), and cerebral infarction without residual deficits Status: Acute (4) Dyslipidemia: Code(s): E78.5 - Hyperlipidemia, unspecified Status: Inactive (5) Atrial fibrillation: Code(s): I48.91 - Unspecified atrial fibrillation Status: Inactive (6) Current use of director long term care anticoagulation: Code(s): Z79.01 - halfway (current) use of anticoagulants Status: Inactive Transfer Discharge Sum: Med Medications Active and Home Medications: Home Medications apixaban [Eliquis] 5 mg PO Q12HR #60 tablet 04/01/20 [Rx Confirmed 04/08/20] atorvastatin 80 mg PO HS #30 tablet 04/01/20 [Rx Confirmed 04/08/20] escitalopram oxalate [Lexapro] 5 mg PO DAILY #3 tablet 04/01/20 [Rx Confirmed 04/08/20] metoprolol tartrate 75 mg PO Q12H #60 tablet 04/01/20 [Rx Confirmed 04/08/20] pantoprazole [Protonix] 20 mg PO QAM #30 tablet 04/01/20 [Rx Confirmed 04/08/20] spironolactone 25 mg PO DAILY #3 tablet 04/01/20 [Rx Confirmed 04/08/20] clonazepam 2 mg PO HS 04/08/20 [History Confirmed 04/08/20] Active Medications Acetaminophen (Acetaminophen 325 Mg Tablet) 650 mg PO Q4H PRN PRN Reason: Mild Pain (1-3) or Fever Apixaban (Apixaban 5 Mg Tablet) 5 mg PO Q12HR [facility] Last Admin: 04/09/20 08:24 Dose: 5 mg Documented by: Atorvastatin Calcium (Atorvastatin 40 Mg Tablet) 80 mg PO HS [facility] Last Admin: 04/08/20 20:30 Dose: 80 mg Documented by: Clonazepam (Clonazepam (*Crx) 0.5 Mg Tablet) 2 mg PO HS [facility] Last Admin: 04/08/20 20:29 Dose: 2 mg Documented by: Escitalopram Oxalate (Escitalopram Oxalate 5 Mg Tablet) 5 mg PO DAILY [facility] Last Admin: 04/09/20 08:23 Dose: 5 mg Documented by: Hydralazine HCl (Hydralazine Hcl 20 Mg/Ml Vial) 10 mg IV PUSH Q6HR PRN PRN Reason: Blood Pressure - High Metoprolol Tartrate (Metoprolol Tartrate 25 Mg Tablet) 75 mg PO Q12HR [facility] Last Admin: 04/09/20 08:23 Dose: 75 mg Documented by: Ondansetron HCl (Ondansetron Inj 4 Mg/2 Ml Vial) 4 mg IV PUSH Q4H PRN PRN Reason: Nausea Pantoprazole Sodium (Pantoprazole Sod Sesquihydrate 20 Mg Tab) 20 mg PO QAM [facility] Last Admin: 04/09/20 08:23 Dose: 20 mg Documented by: Spironolactone (Spironolactone 25 Mg Tablet) 25 mg PO DAILY [facility] Last Admin: 04/09/20 08:24 Dose: 25 mg Documented by: Transfer Discharge Sum: Hosp Hospital Course Hospital course: Janessa Foster is a 69 year old female who presented emergency room for elevated blood pressures and worsening stroke-like symptoms from her prior stroke and the end of February., pulse 95, respiratory rate 16, blood pressure 183/128, pulse ox 98 on room air. CBC within normal limits. BMP relatively normal. CT of the brain shows no acute infar
== END 2020-04-09 15:15 | disposition short-term general hospital (02) | DRG 66 ==
LOC: ANHED 12:27 → ANH3MEDSUR 15:27
PROVIDERS: Physician Assistant; Admitting Provider Internal Medicine; Emergency Provider Emergency Medicine; PCP Internal Medicine; Visit Provider Internal Medicine
DX: I63.9 Cerebral infarction, unspecified (principal); Z86.73 Personal history of transient ischemic attack (TIA), and cerebral infarction without residual deficits; E78.5 Hyperlipidemia, unspecified; I48.91 Unspecified atrial fibrillation; Z79.01 Long term (current) use of anticoagulants; I10 Essential (primary) hypertension
CPT/HCPCS: 36415; 70450; 70496; 70498; 70553; 71045; 80048; 80053; 82948; 83036; 84484; 85025; 85610; 85730; 93005; 96374; 96375; 96376; 99285; A9270; A9577; G0378; J0360; Q9967

== ENCOUNTER 2020-04-14 16:31 | IRF | payer MEDICARE, SELFPAY ==
--- NOTE | ~2020-04-14 | CT_ITS ---
EXAMINATION: CT brain wo con DATE: 04/21/2020 16:05 INDICATION: Right hemiparesis. TECHNIQUE: Computed tomography (CT) of the head was performed without intravenous contrast. The mA wa s adjusted according to patient size. Iterative reconstruction technique was employed. The dose-lengt h product was 605.33 mGy-cm. COMPARISON: Head CT 04/09/2020, MRI 04/09/2020 FINDINGS: There are old infarcts in the bilateral frontal and parietal lobes and left caudate nucleus . There are subacute infarcts in the left frontal and parietal lobes. There are scattered areas of lo w attenuation in the cerebral white matter. There is no intracranial hemorrhage or abnormal mass lesi on. The ventricles are normal in size. The orbits are normal. There is mild mucosal thickening in sph enoid sinus. There is a mucous attention cyst in left maxillary sinus. The mastoid air cells are norm al. IMPRESSION: 1. Subacute infarcts in the left frontal and parietal lobes. 2. Old infarcts in the bilateral frontal and parietal lobes and left caudate nucleus. 3. Moderate nonspecific cerebral white matter disease, which likely represents chronic small vessel i schemic disease. Reviewed, dictated and finalized at location A. IMPRESSION: 1. Subacute infarcts in the left frontal and parietal lobes. 2. Old infarcts in the bilateral frontal and parietal lobes and left caudate nu cleus. 3. Moderate nonspecific cerebral white matter disease, which likely represents chronic small vessel ischemic disease.
--- NOTE | 2020-04-14 16:29 | ADMGEN ---
This patient, Janessa Foster, was admitted to [facility] Room 226-01. Patient/family oriented to hospital policies and general routines including ID bracelet, bed and alarms, visiting hours, pain management, procedures, bathroom and other care routines, personal items, smoking policy, room service/diet, and visiting hours. Information on how to activate the Rapid Response Team has been discussed. Patient/Family are encouraged to report perceived risks to care and to ask questions if they do not understand what they are told or what they should do. 1615 Patient arrived via [facility] ambulance, she is alert and oriented, b/p's on ride over were 165/122 and 145/107, she has no c/o pain or discomfort
[2020-04-14 16:44] VITALS: BP 152/95; PULSE 89; RESP 18; TEMP 37; O2SAT 97
[2020-04-14 16:45] VITALS: BMI 28.3
[2020-04-14 18:29] VITALS: BMI 28.3
[2020-04-14 20:35] VITALS: PULSE 74
[2020-04-14] MEDS: METOPROLOL TARTRATE 25 MG TABLET 75 MG PO (20:35)
[2020-04-14] MEDS: APIXABAN 5 MG TABLET PO (20:35)
[2020-04-14] MEDS: ATORVASTATIN 40 MG TABLET 80 MG PO (20:35)
[2020-04-14 21:36] LABS: Glucose Point of Care 147 (65-105)
[2020-04-14 22:00] VITALS: BP 156/89; PULSE 74; RESP 19; TEMP 36.3; O2SAT 98
[2020-04-15 05:02] LABS: Basophils Absolute Auto 0.1 K/mm3 (0.0-0.1); Basophils Percent Auto 1.1 % (0.2-1.2); Eosinophils Absolute Auto 0.3 K/mm3 (0-0.3); Eosinophils Percent Auto 4.4 % (0-4.4); Hematocrit 39.2 % (37.0-47.0); Hemoglobin 13.8 g/dL (12.0-15.0); Immature Granulocyte Absolute 0.01 K/mm3 (0.00-0.031); Immature Granulocyte Percent A 0.2 % (0-0.5); Lymphocytes Absolute Auto 2.36 K/mm3 (0.9-3.2); Lymphocytes Percent Auto 35.6 % (18.3-44.2); Mean Corpuscular HGB Conc 35.2 g/dl (32-36); Mean Corpuscular Hemoglobin 32.5 pg (26-34); Mean Corpuscular Volume 92.5 fl (80-100); Mean Platelet Volume 10.3 fl (7.4-10.4); Monocytes Absolute Auto 0.7 K/mm3 (0.1-0.6); Neutrophils Absolute Auto 3.2 K/mm3 (1.3-6.7); Neutrophils Percent Auto 48.7 % (45.5-73.1); Platelet Count Result 270 k/mm3 (150-375); Red Blood Count 4.24 M/mm3 (4.2-5.4); Red Cell Distribution Width 12.3 % (11.5-14.5); White Blood Count 6.6 K/mm3 (4.5-10.0)
[2020-04-15 05:14] LABS: Anion Gap 7 mmol/L (8-16); Blood Urea Nitrogen 18 mg/dL (7-17); Calcium 9.3 mg/dL (8.4-10.2); Carbon Dioxide 29 mmol/L (22-30); Chloride 101 mmol/L (98-107); Cholesterol 91 mg/dL (0-200); Estimated CRCL calculation 50 ml/min; Estimated Glomerular Filt Rate > 60; Glucose 136 mg/dL (65-105); HDL Direct 31 mg/dL; Potassium 4.1 mmol/L (3.4-5.0); Sodium 137 mmol/L (137-145); Triglycerides 134 mg/dL (<150)
[2020-04-15 05:15] LABS: Hemoglobin A1C 6.2 % (<5.7)
[2020-04-15 05:25] LABS: LDL Cholesterol Direct 35 mg/dL
[2020-04-15 06:00] VITALS: BP 150/98; PULSE 73; RESP 16; TEMP 36; O2SAT 95
[2020-04-15 06:42] LABS: Glucose Point of Care 146 (65-105)
[2020-04-15 09:36] VITALS: PULSE 76
[2020-04-15] MEDS: METOPROLOL TARTRATE 25 MG TABLET 75 MG PO ×2 (09:36→20:55)
[2020-04-15] MEDS: ESCITALOPRAM OXALATE 5 MG TABLET PO (09:36)
[2020-04-15] MEDS: SPIRONOLACTONE 50 MG TABLET 100 MG PO (09:36)
[2020-04-15] MEDS: APIXABAN 5 MG TABLET PO ×2 (09:36→20:55)
--- NOTE | 2020-04-15 10:30 | PM.IMHP ---
H&P: HPI History of Present Illness Date/Time: 04/15/20 11:47 Chief complaint: cva Narrative: Janessa Foster is a 69 year old female is readmitted to occur acute rehab after being evaluated at [facility] with diagnosis of stroke/ the etiologic diagnosis is left internal carotid artery watershed infarction. The patient was seen [id number] by this examiner at 10:30 a.m. on April 15, 2020 The patient is a 69-year-old woman with a past medical history of strokes, atrial fibrillation, hypertension, and hyperlipidemia along with diagnosis of the occlusion of the left internal carotid artery and moderate occlusion of the right internal carotid presented to [facility] on April 08, 2020 with worsening right-sided weakness elevated blood pressure after being recently diagnosed with left thurman radiata and centrum semi ovale ischemic stroke did left to due to left internal carotid artery occlusion. The patient had been in the [facility] and her last admission between March 23, 2020 and she was discharged home on April 01, 2020 to live with her daughter. On April 07, 2020 while working with physical therapy she noted new right-sided weakness. And she also reported finding it difficult to lift objects and difficulty with ambulation so she presented to [facility] on April 08, 2020 which she was found to have a new acute infarction of the left frontal and parietal lobes. She was then transferred to [facility] where she was initially treated at and was readmitted April 09, 2020. On her arrival an IHSS was 5 she was not appropriate for tPA or mechanical thrombectomy as she was on apixaban for her atrial fibrillation plus of course out of the window a cerebral angiogram was performed April 11 and revealed left internal carotid artery occlusion which we were aware of it even from the previous hospitalization and also a 70% right internal carotid artery communicating segment stenosis with supply of both hemispheres from the right internal carotid artery via anterior communicating and the left posterior communicating. The patient will need a right internal carotid artery stent and this was scheduled for outpatient on April 27, 2020. She will need to be off of apixaban 1 week prior to stent placement and switched to DAPT the appreciation not familiar to me but I suspect it is due all anti-platelet agents that I will need to clarify from the [facility] because it may also be hazard for having a major surgery anti illness the feel the will be able to do the stenting being on dual anti-platelet agent. Neurology was consulted and she will continue atorvastatin. Her aspirin was discontinue she is already on anticoagulant. Her atrial fibrillation is being managed with metoprolol and apixaban. For hypertension she was continued on metoprolol and her spironolactone was increased to 100 milligram. Patient had near-syncopal event on April 12, 2020 following standing up from toilet like vasovagal. The patient is recommended slow positional transitions. Physicians also recommended a lungs for higher blood pressure of 100 30 to 150 systolic. She passed a swallowing study and is on regular consistency carbohydrate diet. She will be discharged to rehab on apixaban. The patient has not traveled outside the [place] or had contact with someone who is ill status traveled outside the [place] in the past 21 days. The patient has not traveled to an area of the [place] that is experiencing no transmission of the Coronavirus and has not had close personal contact with anyone that has. The patient does not have a fever. The patient is not experiencing low respiratory illness symptoms. Therapy was initiated at the acute care facility and the patient was transferred to us from [facility] on April 14, 2020 The patient has had no major surgery in the last 1 days. The patient has had
[2020-04-15 11:59] LABS: Glucose Point of Care 154 (65-105)
[2020-04-15 13:27] VITALS: BMI 28.3
[2020-04-15 14:00] VITALS: BP 146/97; PULSE 73; RESP 20; TEMP 36.3; O2SAT 97
--- NOTE | 2020-04-15 16:37 | RPD ---
INDIVIDUALIZED PLAN OF CARE FOR Janessa Foster Brief Synthesis of Pre-Admission Screen, Post-Admission Evaluation and Therapy Evaluations: The patient presents to rehab with LICA watershed infarction. Comorbidities include LICA occlusion, prior stroke, right-sided hemiparesis, mild expressive and receptive aphasia, WOOD communicating segment stenosis, atrial fibrillation, hypertension, and hyperlipidemia. This patient requires intensive therapies to restore lost function due to stroke in order to maximize their functional level of independence and quality of life. The complexity of the patient's medical management, nursing, and therapy needs require an inpatient rehab hospital stay with a physician-led interdisciplinary team approach. The patient?s needs will be best met in an intensive program vs. at a lower level of care. The patient requires physician services for neurology services, medical oversight, and coordination of care. Emotional needs will be monitored as depression is a common sequelae of stroke. The patient needs physician monitoring and treatment of blood pressure, atrial fibrillation, monitoring for adverse reactions to new medications, monitoring of infection, and pain control. The patient requires nursing services for frequent neuro checks, anticoagulation therapy, medication management and education, pressure relief and skin care management, monitoring of labs, bowel and bladder training, and fall/safety precautions. Deficits include:ADLs, Balance, Cognition, Endurance, Family Training/Education, Mobility, ROM, Safety, Speech, Strength, and Transfers. Machine Heel Seat Fitter/Case Management for: Discharge Planning and Patient/Family Counseling Physical Therapy: 5 days per week for 75 minutes. Treatments may include: Therapeutic Exercise, Gait Training, Neuromuscular Re-education, Transfer Training, Community Reintegration, Bed Mobility, Patient/Family Education, Wheelchair Mobility Group Therapy/Concurrent Therapy Rationales: -Improve attention span during functional activities in a distracted environment. -Enhance problem solving and/or adequate judgment skills during functional activities in a distracted environment. -Promote increased safety awareness in a distracted environment to reduce fall risk with functional tasks, transfers, and ambulation to allow a more safe, self-sufficient return to the home environment. -Improve dynamic balance skills to promote safety and independence with functional activities in a distracted environment for maximum gain. Occupational Therapy: 5 days per week for 75 minutes. Treatments may include: Therapeutic Exercise, Therapeutic Activity, Cognitive Training, Self-Care Transfer Training, Community Reintegration, Home Management, Patient/Family Education, Wheelchair Mobility Training, Energy Conservation Training Group Therapy/Concurrent Therapy Rationales: -Allow therapist to observe and teach generalization and carry-over of skills learned in individual therapy. -Enhance problem solving and sequencing skills during therapeutic activities in a distracted environment. -Promote increased safety awareness in a realistic setting to reduce fall risk with functional tasks due to visual and verbal distractions. -Increase functional level with ADLs, ADL transfers and use of adaptive equipment through therapeutic activities with others while promoting safety to allow a more safe, self-sufficient return home. Speech Therapy: 5 days per week for 30 minutes. Treatments may include: Dysphasia Therapy, Speech/Language/Communication Therapy, Cognitive Training, Patient/Family Education Group Therapy/Concurrent Therapy - Rationale: -Allow therapist to observe and teach generalization and carry-over of skills learned in individual therapy. -Improve comprehension skills with complex or abstract ideas through discussion in a realistic setting. -Enhance problem solving skills with complex issues during activities in a distracted environ
--- NOTE | 2020-04-15 16:46 | PC.NURSE ---
daughter called, concerned about upcoming stent surgery, nothing in discharge orders but Dr. Mallory to call patient about pre-op, we left a message at 's office to advise us about pre-op orders, date, etc
[2020-04-15 17:22] LABS: Glucose Point of Care 144 (65-105)
[2020-04-15 20:23] LABS: Glucose Point of Care 131 (65-105)
[2020-04-15 20:42] VITALS: BP 134/89; PULSE 88; RESP 18; TEMP 36.2; O2SAT 97
[2020-04-15 20:55] VITALS: PULSE 88
[2020-04-15] MEDS: ATORVASTATIN 40 MG TABLET 80 MG PO (20:55)
[2020-04-16 05:16] VITALS: BP 136/58; PULSE 89; RESP 18; TEMP 36.4; O2SAT 97
[2020-04-16 06:44] LABS: Glucose Point of Care 147 (65-105)
[2020-04-16] MEDS: ESCITALOPRAM OXALATE 5 MG TABLET PO (09:37)
[2020-04-16] MEDS: SPIRONOLACTONE 50 MG TABLET 100 MG PO (09:37)
[2020-04-16 09:38] VITALS: PULSE 89
[2020-04-16] MEDS: METOPROLOL TARTRATE 25 MG TABLET 75 MG PO ×2 (09:38→20:37)
[2020-04-16] MEDS: APIXABAN 5 MG TABLET PO ×2 (09:38→20:38)
[2020-04-16 11:38] LABS: Glucose Point of Care 161 (65-105)
[2020-04-16 14:00] VITALS: BP 148/85; PULSE 82; RESP 18; TEMP 36.4; O2SAT 97
--- NOTE | 2020-04-16 14:47 | WPDNEURORHBP ---
Subjective Date/time seen: 04/16/20 14:47 69 years old lady on the rehab floor with the history of left internal carotid artery watershed infarction and also history of in the past 1. Stroke 2. Atrial fibrillation 3. Hypertension 4. Hyperlipidemia 5. Occlusion of the left internal carotid artery 6. 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 History of esophageal stricture with esophageal dilatation and GERD, blood sugar 161 on insulin 2 to 5 units subcu t.i.d. with meals, apixaban 5 mg q.12 hours, atorvastatin 80 mg at night and Lexapro 5 mg daily Review of Systems Review of Systems: All systems reviewed & are unremarkable except as noted in HPI and below Functional Status Ambulation Ability Ability to Ambulate 10 Feet: Minimum Assistance X 2 Ability to Ambulate 50 Feet With 2 Turns: Minimum Assistance X 2 Ambulation Assistive Devices: Walker, Wheeled Exam Narrative: Exam Narrative: on examination today she is awake alert, right-sided weakness more so than other, heart is regular, lungs with no crepitation ,abdomen is soft with no organomegaly ,and neuro examination visual field cut Objective Data Vital Signs Vital Signs: Vital Signs - 24 hr 04/15/20 20:42 04/15/20 20:55 04/16/20 05:16 Temperature 36.2 C L 36.4 C Pulse Rate 88 88 89 Respiratory Rate 18 18 Blood Pressure 134/89 136/58 L Pulse Oximetry 97 97 04/16/20 09:38 04/16/20 14:00 Temperature 36.4 C L Pulse Rate 89 82 Respiratory Rate 18 Blood Pressure 148/85 H Pulse Oximetry 97 Intake/Output Intake/Output: Intake & Output 04/13/20 04/14/20 04/15/20 04/16/20 23:59 23:59 23:59 23:59 Intake Total 200 720 480 Balance 200 720 480 Meds/Results Medications: Active Medications Generic Name Dose Route Start Last Admin Trade Name Freq PRN Reason Stop Dose Admin Apixaban 5 mg 04/14/20 21:00 04/16/20 09:38 Apixaban 5 Mg Tablet PO 5 mg Q12HR ISAAC Administration Atorvastatin Calcium 80 mg 04/14/20 21:00 04/15/20 20:55 Atorvastatin 40 Mg Tablet PO 80 mg HS ISAAC Administration Dextrose 12.5 gm 04/14/20 16:58 Dextrose 50% 25 Gm/50 Ml Syringe IV PUSH PRN PRN Hypoglycemia Protocol Escitalopram Oxalate 5 mg 04/15/20 09:00 04/16/20 09:37 Escitalopram Oxalate 5 Mg Tablet PO 5 mg DAILY ISAAC Administration Glucagon 1 mg 04/14/20 16:58 Glucagon For Inj 1 Mg Vial IM PRN PRN Hypoglycemia Protocol Glucose 15 gm 04/14/20 16:58 Glucose Oral Gel 15 Gm Of Glucse In 37.5 Gm Tube PO PRN PRN Hypoglycemia Protocol Dextrose 1,000 mls @ 100 mls/hr 04/14/20 16:58 Dextrose 5% 1,000 Ml IVPB PRN PRN Hypoglycemia Protocol Insulin Aspart 2 - 5 units 04/14/20 17:00 04/16/20 13:05 Insulin Aspart (*Bkc) 100 Units/Ml SUB-Q Not Given TIDWM ISAAC Protocol Metoprolol Tartrate 75 mg 04/14/20 21:00 04/16/20 09:38 Metoprolol Tartrate 25 Mg Tablet PO 75 mg Q12HR ISAAC Administration Spironolactone 100 mg 04/15/20 09:00 04/16/20 09:37 Spironolactone 50 Mg Tablet PO 100 mg DAILY ISAAC Administration Labs Labs: Laboratory Results - last 24 hr 04/15/20 04/15/20 04/16/20 17:12 20:17 06:39 POC Capillary Glucose 144 H 131 H 147 H 04/16/20 11:33 POC Capillary Glucose 161 H Progress Note: A&P Assessment and Plan (1) Acute CVA (cerebrovascular accident): Code(s): I63.9 - Cerebral infarction, unspecified Status: Acute (2) Stroke-like symptom: Code(s): R29.90 - Unspecified symptoms and signs involving the nervous system Status: Acute (3) Recent cerebrovascular accident: Code(s): Z86.73 - Personal history of transient ischemic attack (TIA), and cerebral infarction without residual deficits Status: Acute (4) Poorly-controlled hypertension: Code(s): I10 - Essential (primary) hypertension Status: Acute (5) Gastro-esophageal reflux diseas
[2020-04-16 20:02] VITALS: BP 127/79; PULSE 64; RESP 18; TEMP 36.4; O2SAT 96
[2020-04-16 20:14] LABS: Glucose Point of Care 131 (65-105)
[2020-04-16 20:37] VITALS: PULSE 64
[2020-04-16] MEDS: ATORVASTATIN 40 MG TABLET 80 MG PO (20:38)
[2020-04-17 04:49] VITALS: BP 142/98; PULSE 75; RESP 18; TEMP 36; O2SAT 95
[2020-04-17 06:54] LABS: Glucose Point of Care 153 (65-105)
[2020-04-17 09:46] VITALS: PULSE 75
[2020-04-17] MEDS: METOPROLOL TARTRATE 25 MG TABLET 75 MG PO ×2 (09:46→20:39)
[2020-04-17] MEDS: APIXABAN 5 MG TABLET PO ×2 (09:46→20:39)
[2020-04-17] MEDS: ESCITALOPRAM OXALATE 5 MG TABLET PO (09:46)
[2020-04-17] MEDS: SPIRONOLACTONE 50 MG TABLET 100 MG PO (09:47)
[2020-04-17 14:00] VITALS: BP 150/98; PULSE 86; RESP 18; TEMP 36.4; O2SAT 98
--- NOTE | 2020-04-17 14:11 | WPDREHABHP ---
H&P: HPI History of Present Illness Date/Time: 04/17/20 14:11 Chief complaint: cva Narrative: Janessa Foster is a 69 year old female admitted to the rehab floor with left internal carotid artery watershed infarction in addition to the ongoing history of hypertension, lipidemia, atrial fibrillation, occlusion of the left internal carotid artery, and moderate occlusion of the right internal carotid artery as well additionally history of esophageal stricture and dilatation Review of Systems Review of Systems All systems reviewed & are unremarkable except as noted in HPI and below PMFSH Past Medical History Medical History (Updated 04/09/20 @ 14:08 by Meka Dhillon PA-C) Atrial fibrillation Cerebrovascular accident History of several strokes with most recent stroke being 03/18/2020, with resultant expressive aphasia and right hemiplegia. Current use of assisted anticoagulation Dyslipidemia Esophageal stricture Status post esophageal dilatation. Gastroesophageal reflux disease Hypertension Stenosis of left internal carotid artery Syncope Surgical History Surgical History (Updated 04/08/20 @ 20:02 by Sarah Mccallum PA-C) History of section History of dilation and curettage Family History Family History Mother Patient's mother is Diabetes mellitus, Onset Age: 70 Hypertension, Onset Age: 70 Family history of malignant neoplasm of breast in first degree relative, Onset Age: 70 Father Patient's father is Diabetes mellitus, Onset Age: 80 Hypertension, Onset Age: 80 Family history of cardiovascular disease, Onset Age: 80 Social History Social History (Updated 04/08/20 @ 20:03 by Sarah Mccallum PA-C) Social History: Surrogate decision maker: Yanelis Baugh, daughter. Code status: Full code. Smoking status: Never smoker Second hand tobacco smoke exposure: No Alcohol intake: never Substance use: never Additional living arrangements comments: Lives in her own home in [place]. Family now staying with her 24 hours a day. Additional occupation/education comments: Retired real property appraiser. Gender identity (if verbalized by the patient): Female Spiritual care concerns: No Meds Home Medications and Allergies Home Medications Medication Instructions Recorded Confirmed Type apixaban [Eliquis] 5 mg PO Q12HR #60 tablet 04/01/20 04/14/20 Rx atorvastatin 80 mg PO HS #30 tablet 04/01/20 04/14/20 Rx escitalopram oxalate [Lexapro] 5 mg PO DAILY #3 tablet 04/01/20 04/14/20 Rx metoprolol tartrate 75 mg PO Q12H #60 tablet 04/01/20 04/14/20 Rx spironolactone 100 mg PO DAILY 04/14/20 04/14/20 History Allergies Allergy/AdvReac Type Severity Reaction Status Date / Time No Known Allergies Allergy Verified 04/08/20 12:38 Vital Signs Vital Signs - 24 hr 04/16/20 20:02 04/16/20 20:37 04/17/20 04:49 Temperature 36.4 C 36.0 C L Pulse Rate 64 64 75 Respiratory Rate 18 18 Blood Pressure 127/79 142/98 H Pulse Oximetry 96 95 04/17/20 09:46 Temperature Pulse Rate 75 Respiratory Rate Blood Pressure Pulse Oximetry Exam Narrative Exam Narrative: on examination today she is awake alert, neck is supple with no restriction of range of the motion ,heart regular,k lungs clear with no crepitation, abdomen is soft with no organomegaly, neuro examination essentially unchanged Assessment and Plan Assessment and plan (1) Acute CVA (cerebrovascular accident): Code(s): I63.9 - Cerebral infarction, unspecified Status: Acute (2) Stroke-like symptom: Code(s): R29.90 - Unspecified symptoms and signs involving the nervous system Status: Acute (3) Recent cerebrovascular accident: Code(s): Z86.73 - Personal history of transient ischemic attack (TIA), and cerebral infarction without residual deficits Status: Acute (4) Po
[2020-04-17 16:31] LABS: Glucose Point of Care 128 (65-105)
[2020-04-17 20:05] LABS: Glucose Point of Care 121 (65-105)
[2020-04-17] MEDS: ATORVASTATIN 40 MG TABLET 80 MG PO (20:39)
[2020-04-17 22:00] VITALS: BP 147/95; PULSE 88; RESP 18; TEMP 36; O2SAT 98
[2020-04-18 06:00] VITALS: BP 135/92; PULSE 99; RESP 17; TEMP 36.1; O2SAT 99
[2020-04-18 06:44] LABS: Glucose Point of Care 130 (65-105)
[2020-04-18 08:34] VITALS: PULSE 96
[2020-04-18] MEDS: SPIRONOLACTONE 50 MG TABLET 100 MG PO (08:34)
[2020-04-18] MEDS: METOPROLOL TARTRATE 25 MG TABLET 75 MG PO ×2 (08:34→20:59)
[2020-04-18] MEDS: APIXABAN 5 MG TABLET PO ×2 (08:34→20:58)
[2020-04-18] MEDS: ESCITALOPRAM OXALATE 5 MG TABLET PO (08:34)
[2020-04-18 08:40] VITALS: PULSE 94; RESP 16; O2SAT 99
[2020-04-18 14:00] VITALS: BP 145/98; PULSE 58; RESP 16; TEMP 36.6; O2SAT 99
--- NOTE | 2020-04-18 14:48 | PC.NURSE ---
Karissa [place] [facility] [place] procedure for patient scheduled for May 04 Instructions preceding procedure are: On April 27, 2020 stop Eliquis and start Aspirin and Plavix.
[2020-04-18 20:59] VITALS: PULSE 90
[2020-04-18] MEDS: ATORVASTATIN 40 MG TABLET 80 MG PO (20:59)
[2020-04-18 21:00] VITALS: BP 152/87; PULSE 90; RESP 18; TEMP 35.9; O2SAT 98
[2020-04-18 21:59] LABS: Glucose Point of Care 134 (65-105)
[2020-04-19 05:08] VITALS: BP 126/89; PULSE 85; RESP 18; TEMP 36.4; O2SAT 98
[2020-04-19 06:42] LABS: Glucose Point of Care 159 (65-105)
[2020-04-19 07:56] VITALS: PULSE 86
[2020-04-19] MEDS: APIXABAN 5 MG TABLET PO ×2 (07:56→20:32)
[2020-04-19] MEDS: METOPROLOL TARTRATE 25 MG TABLET 75 MG PO ×2 (07:56→20:31)
[2020-04-19] MEDS: SPIRONOLACTONE 50 MG TABLET 100 MG PO (07:56)
[2020-04-19] MEDS: ESCITALOPRAM OXALATE 5 MG TABLET PO (07:56)
--- NOTE | 2020-04-19 12:49 | PC.NURSE ---
Addendum entered by Janae Tracy RN 04/19/20 12:54: surgeon will be Dr. Vasquez Kaufman, paperwork placed in chart Original Note: RECEIVED TYPED PRE-OP INSTRUCTIONS INCLUDING DOSE OF ASA AND PLAVIX TO BE INITIATED ON 04/27/20
[2020-04-19 14:00] VITALS: BP 144/85; PULSE 92; RESP 20; TEMP 36.5; O2SAT 100
--- NOTE | 2020-04-19 17:43 | WPDNEURORHBP ---
Subjective Date/time seen: 04/19/20 17:43 69 years old lady admitted to the rehab floor with left internal carotid artery watershed infarct in addition to the ongoing history of hypertension, hyperlipidemia, atrial fibrillation, and esophageal stricture, involved in physical therapy and occupational therapy, has no specific complaints Review of Systems Review of Systems: All systems reviewed & are unremarkable except as noted in HPI and below Functional Status Ambulation Ability Ability to Ambulate 10 Feet: Contact Guard Ability to Ambulate 50 Feet With 2 Turns: Contact Guard Ability to Ambulate 150 Feet: Standby Assistance Ambulation Assistive Devices: Walker, Wheeled Transfers Ability Ability to Transfer In/Out of Chair: Contact Guard Exam Narrative: Exam Narrative: on examination she is awake alert cooperative, head normocephalic, ears nose throat examination normal, neck supple with no restriction in range of motion, no cervical bruit ,heart regular with no murmur ,lungs clear to auscultation no crepitation ,abdomen is soft no organomegaly ,neuro examination is essentially unchanged Objective Data Vital Signs Vital Signs: Vital Signs - 24 hr 04/18/20 20:59 04/18/20 21:00 04/19/20 05:08 Temperature 35.9 C L 36.4 C L Pulse Rate 90 90 85 Respiratory Rate 18 18 Blood Pressure 152/87 H 126/89 Pulse Oximetry 98 98 04/19/20 07:56 04/19/20 14:00 Temperature 36.5 C Pulse Rate 86 92 Respiratory Rate 20 Blood Pressure 144/85 H Pulse Oximetry 100 Intake/Output Intake/Output: Intake & Output 04/16/20 04/17/20 04/18/20 04/19/20 23:59 23:59 23:59 23:59 Intake Total 720 600 960 480 Balance 720 600 960 480 Meds/Results Medications: Active Medications Generic Name Dose Route Start Last Admin Trade Name Freq PRN Reason Stop Dose Admin Apixaban 5 mg 04/14/20 21:00 04/19/20 07:56 Apixaban 5 Mg Tablet PO 04/27/20 00:05 5 mg Q12HR ISAAC Administration Aspirin 325 mg 04/27/20 08:00 Aspirin 325 Mg Tablet PO DAILY@0800 ISAAC Atorvastatin Calcium 80 mg 04/14/20 21:00 04/18/20 20:59 Atorvastatin 40 Mg Tablet PO 80 mg HS ISAAC Administration Clopidogrel Bisulfate 75 mg 04/27/20 09:00 Clopidogrel Bisulfate 75 Mg Tablet PO QAM ISAAC Dextrose 12.5 gm 04/14/20 16:58 Dextrose 50% 25 Gm/50 Ml Syringe IV PUSH PRN PRN Hypoglycemia Protocol Escitalopram Oxalate 5 mg 04/15/20 09:00 04/19/20 07:56 Escitalopram Oxalate 5 Mg Tablet PO 5 mg DAILY ISAAC Administration Glucagon 1 mg 04/14/20 16:58 Glucagon For Inj 1 Mg Vial IM PRN PRN Hypoglycemia Protocol Glucose 15 gm 04/14/20 16:58 Glucose Oral Gel 15 Gm Of Glucse In 37.5 Gm Tube PO PRN PRN Hypoglycemia Protocol Dextrose 1,000 mls @ 100 mls/hr 04/14/20 16:58 Dextrose 5% 1,000 Ml IVPB PRN PRN Hypoglycemia Protocol Metoprolol Tartrate 75 mg 04/14/20 21:00 04/19/20 07:56 Metoprolol Tartrate 25 Mg Tablet PO 75 mg Q12HR ISAAC Administration Spironolactone 100 mg 04/15/20 09:00 04/19/20 07:56 Spironolactone 50 Mg Tablet PO 100 mg DAILY ISAAC Administration Labs Labs: Laboratory Results - last 24 hr 04/18/20 04/19/20 21:05 06:25 POC Capillary Glucose 134 H 159 H Progress Note: A&P Assessment and Plan (1) Acute CVA (cerebrovascular accident): Code(s): I63.9 - Cerebral infarction, unspecified Status: Acute (2) Stroke-like symptom: Code(s): R29.90 - Unspecified symptoms and signs involving the nervous system Status: Acute (3) Recent cerebrovascular accident: Code(s): Z86.73 - Personal history of transient ischemic attack (TIA), and cerebral infarction without residual deficits Status: Acute (4) Poorly-controlled hypertension: Code(s): I10 - Essential (primary) hypertension Status: Acute (5) Gastro-esophageal reflux disease without esophagitis:
[2020-04-19 20:32] VITALS: BP 134/81; PULSE 63; RESP 18; TEMP 36.7; O2SAT 97
[2020-04-19] MEDS: ATORVASTATIN 40 MG TABLET 80 MG PO (20:32)
[2020-04-19 20:39] LABS: Glucose Point of Care 126 (65-105)
[2020-04-20 05:19] VITALS: BP 138/74; PULSE 71; RESP 18; TEMP 36.9; O2SAT 97
[2020-04-20 06:41] LABS: Glucose Point of Care 144 (65-105)
[2020-04-20] MEDS: APIXABAN 5 MG TABLET PO ×2 (09:46→21:32)
[2020-04-20 09:48] VITALS: PULSE 71
[2020-04-20] MEDS: SPIRONOLACTONE 50 MG TABLET 100 MG PO (09:48)
[2020-04-20] MEDS: ESCITALOPRAM OXALATE 5 MG TABLET PO (09:48)
[2020-04-20] MEDS: METOPROLOL TARTRATE 25 MG TABLET 75 MG PO ×2 (09:48→21:34)
[2020-04-20 14:00] VITALS: BP 140/100; PULSE 110; RESP 20; TEMP 37.2; O2SAT 98
--- NOTE | 2020-04-20 14:50 | PCNFU ---
Nutrition Follow-Up Complete: Overweight related to hx excessive intake as evidenced by BMI of 28.4. Patient to consume 75% of meals or greater. Goal: achieved Pt current nutrition is heart healthy, which is appropriate. Nutrition recommendation: no recommendation at this time. Last recorded weight is 68.1 kg, recommend updated entry prior to discharge. Bowel Motility: last recorded BM from nurse chart on 04/20 Labs Reviewed: no new labs since last seen. Meds Noted: Aldactone, Lopressor, Lexapro, Eliquis, Lipitor, Glutose 15, Glucagon Additional Notes: integumentary integrity is WNL Except- healing scab on right barton. Follow up every 7 days.
--- NOTE | 2020-04-20 15:07 | PCNSR ---
On 04/20/20, the student, Sonya Acosta, provided care and completed [facility] documentation on this patient. I have reviewed the student's documentation and agree with the findings.
--- NOTE | 2020-04-20 17:53 | WPDNEURORHBP ---
Subjective Date/time seen: 04/20/20 17:53 69 years old lady with left internal carotid artery watershed infarct in addition to the history of hypertension, hyperlipidemia, atrial fibrillation, and esophageal stricture involved in the physical therapy and occupational therapy, at present she can ambulate up to 150ft with standby assistance using the wheel walker and able to transfer in and out of chair with contact guard Functional Status Ambulation Ability Ability to Ambulate 10 Feet: Standby Assistance Ability to Ambulate 50 Feet With 2 Turns: Standby Assistance Ability to Ambulate 150 Feet: Standby Assistance Ambulation Assistive Devices: Walker, Wheeled Transfers Ability Ability to Transfer In/Out of Chair: Standby Assistance Exam Narrative: Exam Narrative: exam revealed her to be awake alert with no specific complaints, ear nose throat exam normal, neck supple, heart regular with no murmur,, lungs clear to auscultation, abdomen is soft nontender, normal bowel sounds, neuro unchanged Objective Data Vital Signs Vital Signs: Vital Signs - 24 hr 04/19/20 20:32 04/20/20 05:19 04/20/20 09:48 Temperature 36.7 C 36.9 C Pulse Rate 63 71 71 Respiratory Rate 18 18 Blood Pressure 134/81 138/74 Pulse Oximetry 97 97 04/20/20 14:00 Temperature 37.2 C Pulse Rate 110 H Respiratory Rate 20 Blood Pressure 140/100 H Pulse Oximetry 98 Intake/Output Intake/Output: Intake & Output 04/17/20 04/18/20 04/19/20 04/20/20 23:59 23:59 23:59 23:59 Intake Total 600 960 720 480 Balance 600 960 720 480 Meds/Results Medications: Active Medications Generic Name Dose Route Start Last Admin Trade Name Freq PRN Reason Stop Dose Admin Apixaban 5 mg 04/14/20 21:00 04/20/20 09:46 Apixaban 5 Mg Tablet PO 04/27/20 00:05 5 mg Q12HR ISAAC Administration Aspirin 325 mg 04/27/20 08:00 Aspirin 325 Mg Tablet PO DAILY@0800 ISAAC Atorvastatin Calcium 80 mg 04/14/20 21:00 04/19/20 20:32 Atorvastatin 40 Mg Tablet PO 80 mg HS ISAAC Administration Clopidogrel Bisulfate 75 mg 04/27/20 09:00 Clopidogrel Bisulfate 75 Mg Tablet PO QAM [facility] Dextrose 12.5 gm 04/14/20 16:58 Dextrose 50% 25 Gm/50 Ml Syringe IV PUSH PRN PRN Hypoglycemia Protocol Escitalopram Oxalate 5 mg 04/15/20 09:00 04/20/20 09:48 Escitalopram Oxalate 5 Mg Tablet PO 5 mg DAILY ISAAC Administration Glucagon 1 mg 04/14/20 16:58 Glucagon For Inj 1 Mg Vial IM PRN PRN Hypoglycemia Protocol Glucose 15 gm 04/14/20 16:58 Glucose Oral Gel 15 Gm Of Glucse In 37.5 Gm Tube PO PRN PRN Hypoglycemia Protocol Dextrose 1,000 mls @ 100 mls/hr 04/14/20 16:58 Dextrose 5% 1,000 Ml IVPB PRN PRN Hypoglycemia Protocol Metoprolol Tartrate 75 mg 04/14/20 21:00 04/20/20 09:48 Metoprolol Tartrate 25 Mg Tablet PO 75 mg Q12HR ISAAC Administration Spironolactone 100 mg 04/15/20 09:00 04/20/20 09:48 Spironolactone 50 Mg Tablet PO 100 mg DAILY ISAAC Administration Labs Labs: Laboratory Results - last 24 hr 04/19/20 04/20/20 20:30 06:32 POC Capillary Glucose 126 H 144 H Progress Note: A&P Assessment and Plan (1) Acute CVA (cerebrovascular accident): Code(s): I63.9 - Cerebral infarction, unspecified Status: Acute (2) Stroke-like symptom: Code(s): R29.90 - Unspecified symptoms and signs involving the nervous system Status: Acute (3) Recent cerebrovascular accident: Code(s): Z86.73 - Personal history of transient ischemic attack (TIA), and cerebral infarction without residual deficits Status: Acute (4) Poorly-controlled hypertension: Code(s): I10 - Essential (primary) hypertension Status: Acute (5) Gastro-esophageal reflux disease without esophagitis: Code(s): K21.9 - Gastro-esophageal reflux disease without esophagitis Status: Acute (6) History of CVA (cerebrovascular
[2020-04-20] MEDS: ATORVASTATIN 40 MG TABLET 80 MG PO (21:32)
[2020-04-20 21:34] VITALS: PULSE 116
[2020-04-20 22:00] VITALS: BP 155/98; PULSE 116; RESP 18; TEMP 36.6; O2SAT 98
[2020-04-20 22:31] LABS: Glucose Point of Care 151 (65-105)
[2020-04-21] VITALS (7 sets, daily range): BP systolic 129–158; BP diastolic 86–129; PULSE 72–88; RESP 16–19; TEMP 36.2–36.5; O2SAT 96–97
[2020-04-21 06:47] LABS: Glucose Point of Care 130 (65-105)
[2020-04-21] MEDS: SPIRONOLACTONE 50 MG TABLET 100 MG PO (09:48)
[2020-04-21] MEDS: APIXABAN 5 MG TABLET PO ×2 (09:48→21:23)
[2020-04-21] MEDS: ESCITALOPRAM OXALATE 5 MG TABLET PO (09:48)
[2020-04-21] MEDS: METOPROLOL TARTRATE 25 MG TABLET 75 MG PO ×2 (09:48→21:23)
--- NOTE | 2020-04-21 17:14 | PC.NURSE ---
1600: Called into therapy, patient change in condition, right leg locked up , cannot move or bear weight with no movement with stimuli. Daughter states that is what happened with this past stroke of 04/09/20. Dr. Sun called and patient placed back into bed for safety. CT scan ordered. 1610: CT resulted and called to Dr. Sun showing no new infarcts or hemorrhages from comparison of CT and MRI from 04/09. Will continue to monitor with family and staff aware. Also placed call at 3:50 to [facility] neuro to contact either Dr. Germain or his PA Karissa. They were both gone for the day, but given PA's number and gave her a call.
[2020-04-21] MEDS: ATORVASTATIN 40 MG TABLET 80 MG PO (21:23)
[2020-04-21 22:32] LABS: Glucose Point of Care 128 (65-105)
[2020-04-22 04:54] LABS: Basophils Absolute Auto 0.1 K/mm3 (0.0-0.1); Basophils Percent Auto 0.9 % (0.2-1.2); Eosinophils Absolute Auto 0.2 K/mm3 (0-0.3); Eosinophils Percent Auto 2.1 % (0-4.4); Hematocrit 39.9 % (37.0-47.0); Hemoglobin 13.8 g/dL (12.0-15.0); Immature Granulocyte Absolute 0.01 K/mm3 (0.00-0.031); Immature Granulocyte Percent A 0.1 % (0-0.5); Lymphocytes Absolute Auto 2.38 K/mm3 (0.9-3.2); Lymphocytes Percent Auto 33.9 % (18.3-44.2); Mean Corpuscular HGB Conc 34.6 g/dl (32-36); Mean Corpuscular Volume 95.5 fl (80-100); Mean Platelet Volume 10.2 fl (7.4-10.4); Monocytes Absolute Auto 0.6 K/mm3 (0.1-0.6); Monocytes Percent Auto 8.5 % (2.6-8.5); Neutrophils Absolute Auto 3.8 K/mm3 (1.3-6.7); Neutrophils Percent Auto 54.5 % (45.5-73.1); Platelet Count Result 274 k/mm3 (150-375); Red Blood Count 4.18 M/mm3 (4.2-5.4); Red Cell Distribution Width 12.8 % (11.5-14.5)
[2020-04-22 05:15] VITALS: BP 119/76; PULSE 76; RESP 18; TEMP 36.1; O2SAT 94
[2020-04-22 05:17] LABS: Anion Gap 9 mmol/L (8-16); Blood Urea Nitrogen 11 mg/dL (7-17); Calcium 9.1 mg/dL (8.4-10.2); Carbon Dioxide 29 mmol/L (22-30); Chloride 102 mmol/L (98-107); Estimated CRCL calculation 50 ml/min; Estimated Glomerular Filt Rate > 60; Glucose 133 mg/dL (65-105); Potassium 4.2 mmol/L (3.4-5.0); Sodium 140 mmol/L (137-145)
[2020-04-22 06:54] LABS: Glucose Point of Care 136 (65-105)
[2020-04-22 09:52] VITALS: PULSE 76
[2020-04-22] MEDS: ESCITALOPRAM OXALATE 5 MG TABLET PO (09:52)
[2020-04-22] MEDS: SPIRONOLACTONE 50 MG TABLET 100 MG PO (09:52)
[2020-04-22] MEDS: APIXABAN 5 MG TABLET PO ×2 (09:52→20:46)
[2020-04-22] MEDS: METOPROLOL TARTRATE 25 MG TABLET 75 MG PO ×2 (09:52→20:46)
[2020-04-22 12:20] LABS: Glucose Point of Care 145 (65-105)
--- NOTE | 2020-04-22 13:37 | WPDNEURORHBP ---
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 in addition to the history of hypertension, atrial fibrillation, esophageal stricture is actively involved in the physical therapy and occupational therapy able to ambulate up to 150ft with standby assistance using the wheeled walker also able to transfer in and out of chair with standby assistance her hemoglobin is 13.8 with WBCs 7.0 electrolytes normal with blood sugar of 136 Functional Status Ambulation Ability Ability to Ambulate 10 Feet: Standby Assistance Ability to Ambulate 50 Feet With 2 Turns: Standby Assistance Ability to Ambulate 150 Feet: Standby Assistance Ambulation Assistive Devices: Parallel Bars Transfers Ability Ability to Transfer In/Out of Chair: Standby Assistance Exam Narrative: Exam Narrative: on examination she is awake alert ear nose throat examination normal mucous membranes moist no rhinorrhea neck is supple abdomen is soft neuro unchanged Objective Data Vital Signs Vital Signs: Vital Signs - 24 hr 04/21/20 14:00 04/21/20 15:48 04/21/20 15:55 Temperature 36.5 C Pulse Rate 88 Respiratory Rate 16 Blood Pressure 145/96 H 152/129 H 158/98 H Pulse Oximetry 96 04/21/20 21:05 04/21/20 21:23 04/22/20 05:15 Temperature 36.3 C L 36.1 C L Pulse Rate 72 72 76 Respiratory Rate 18 18 Blood Pressure 129/89 119/76 Pulse Oximetry 97 94 04/22/20 09:52 Temperature Pulse Rate 76 Respiratory Rate Blood Pressure Pulse Oximetry Intake/Output Intake/Output: Intake & Output 04/19/20 04/20/20 04/21/20 04/22/20 23:59 23:59 23:59 23:59 Intake Total 720 480 840 240 Balance 720 480 840 240 Meds/Results Medications: Active Medications Generic Name Dose Route Start Last Admin Trade Name Freq PRN Reason Stop Dose Admin Apixaban 5 mg 04/14/20 21:00 04/22/20 09:52 Apixaban 5 Mg Tablet PO 04/27/20 00:05 5 mg Q12HR ISAAC Administration Aspirin 325 mg 04/27/20 08:00 Aspirin 325 Mg Tablet PO DAILY@0800 [facility] Atorvastatin Calcium 80 mg 04/14/20 21:00 04/21/20 21:23 Atorvastatin 40 Mg Tablet PO 80 mg HS ISAAC Administration Clopidogrel Bisulfate 75 mg 04/27/20 09:00 Clopidogrel Bisulfate 75 Mg Tablet PO QAM ISAAC Dextrose 12.5 gm 04/14/20 16:58 Dextrose 50% 25 Gm/50 Ml Syringe IV PUSH PRN PRN Hypoglycemia Protocol Escitalopram Oxalate 5 mg 04/15/20 09:00 04/22/20 09:52 Escitalopram Oxalate 5 Mg Tablet PO 5 mg DAILY ISAAC Administration Glucagon 1 mg 04/14/20 16:58 Glucagon For Inj 1 Mg Vial IM PRN PRN Hypoglycemia Protocol Glucose 15 gm 04/14/20 16:58 Glucose Oral Gel 15 Gm Of Glucse In 37.5 Gm Tube PO PRN PRN Hypoglycemia Protocol Dextrose 1,000 mls @ 100 mls/hr 04/14/20 16:58 Dextrose 5% 1,000 Ml IVPB PRN PRN Hypoglycemia Protocol Metoprolol Tartrate 75 mg 04/14/20 21:00 04/22/20 09:52 Metoprolol Tartrate 25 Mg Tablet PO 75 mg Q12HR ISAAC Administration Spironolactone 100 mg 04/15/20 09:00 04/22/20 09:52 Spironolactone 50 Mg Tablet PO 100 mg DAILY ISAAC Administration Radiology Results: ITS Impressions Head CT 04/21/20 16:06 IMPRESSION: 1. Subacute infarcts in the left frontal and parietal lobes. 2. Old infarcts in the bilateral frontal and parietal lobes and left caudate nucleus. 3. Moderate nonspecific cerebral white matter disease, which likely represents chronic small vessel ischemic disease. Labs Labs: Laboratory Results - last 24 hr 04/21/20 04/22/20 04/22/20 21:29 04:45 04:45 WBC 7.0 RBC 4.18 L Hgb 13.8 Hct 39.9 MCV 95.5 MCH 33.0 MCHC 34.6 RDW 12.8 Plt Count 274 MPV 10.2 Immature Gran % (Auto) 0.1 Neut % (Auto) 54.5 Lymph % (Auto) 33.9 Kershaw % (Auto) 8.5 Eos % (Auto) 2.1 Baso % (Auto) 0.9 Lymph #
[2020-04-22 14:00] VITALS: BP 135/92; PULSE 69; RESP 20; TEMP 37.2; O2SAT 100
[2020-04-22 17:14] LABS: Glucose Point of Care 123 (65-105)
--- NOTE | 2020-04-22 19:24 | PC.NURSE ---
Dr. Slater called from [facility] re: CT of head and how pt was doing including vital signs. She is currently on eliquis and this is to change on 04/27 with a switch to asa and plavix. No new orders.
[2020-04-22 20:35] VITALS: PULSE 84; RESP 20; O2SAT 100
[2020-04-22 20:46] VITALS: PULSE 84
[2020-04-22] MEDS: ATORVASTATIN 40 MG TABLET 80 MG PO (20:48)
[2020-04-22 21:07] LABS: Glucose Point of Care 130 (65-105)
[2020-04-22 22:00] VITALS: BP 163/97; PULSE 85; RESP 17; TEMP 36.3; O2SAT 97
--- NOTE | 2020-04-23 05:25 | PC.NURSE ---
0450 Pt was assisted to the bathroom per wc. Right arm found to be flacid at this timje. VS 182/100, HR 82 irregular 20 resps with98% sat. 0458 Dr Sun notified.
[2020-04-23 06:00] VITALS: BP 180/100; PULSE 100; RESP 19; TEMP 36.6; O2SAT 98
[2020-04-23 06:04] VITALS: PULSE 100
[2020-04-23] MEDS: METOPROLOL TARTRATE 25 MG TABLET 75 MG PO ×2 (06:04→20:13)
[2020-04-23 06:29] LABS: Glucose Point of Care 154 (65-105)
[2020-04-23] MEDS: APIXABAN 5 MG TABLET PO ×2 (09:41→20:13)
[2020-04-23] MEDS: ESCITALOPRAM OXALATE 5 MG TABLET PO (09:41)
[2020-04-23] MEDS: SPIRONOLACTONE 50 MG TABLET 100 MG PO (09:41)
[2020-04-23 12:08] LABS: Glucose Point of Care 140 (65-105)
--- NOTE | 2020-04-23 13:10 | WPDNEURORHBP ---
Subjective Date/time seen: 04/23/20 13:10 patient has been experiencing difficulties in use of the small muscles of the hand on the right side and also right lower extremity becoming stiff and more difficulties in ambulation. Occupation therapy and physical therapy concurred with the findings and patient's family is extremely concerned artery feeding the left hemisphere probably patient is getting worse patient was thought really examine call was made to the [facility] and was [facility] hospital through them to Dr. Llanos the call back and agreed to except her for early intervention patient will be transferred within 24 hours as soon as a bed is available so she can undergo right internal carotid artery stenting procedure as the left ICA is completely occluded and she has been documented to have right to left collateral circulation family was informed accordingly Review of Systems Review of Systems: All systems reviewed & are unremarkable except as noted in HPI and below Functional Status Ambulation Ability Ability to Ambulate 10 Feet: Standby Assistance Ability to Ambulate 50 Feet With 2 Turns: Standby Assistance Ability to Ambulate 150 Feet: Standby Assistance Ambulation Assistive Devices: Parallel Bars Transfers Ability Ability to Transfer In/Out of Chair: Standby Assistance Exam Narrative: Exam Narrative: examination today revealed her to be awake alert ,cooperative in no obvious acute distress, head normocephalic with no cranial bruit, ear nose throat examination normal ,neck is supple with cervical bruit, ,heart regular, lungs clear ,abdomen soft, neuro examination reveals her to be awake alert oriented x3, speech is slow but not dysphasic and not dysarthric, pupils round regular, visual engle with the right sided defect ,facial grimace symmetrical, tongue midline ,uvula midline and motor examination revealed her to have right hemiparesis with hyperreflexia and upgoing plantar response Objective Data Vital Signs Vital Signs: Vital Signs - 24 hr 04/22/20 14:00 04/22/20 20:35 04/22/20 20:46 Temperature 37.2 C Pulse Rate 69 84 84 Respiratory Rate 20 20 Blood Pressure 135/92 H Pulse Oximetry 100 100 04/22/20 22:00 04/23/20 06:00 04/23/20 06:04 Temperature 36.3 C L 36.6 C Pulse Rate 85 100 100 Respiratory Rate 17 19 Blood Pressure 163/97 H 180/100 H Pulse Oximetry 97 98 Intake/Output Intake/Output: Intake & Output 04/20/20 04/21/20 04/22/2020 23:59 23:59 23:59 23:59 Intake Total 480 840 720 240 Balance 480 840 720 240 Meds/Results Medications: Active Medications Generic Name Dose Route Start Last Admin Trade Name Heladioq PRN Reason Stop Dose Admin Apixaban 5 mg 04/14/20 21:00 04/23/20 09:41 Apixaban 5 Mg Tablet PO 04/27/20 00:05 5 mg Q12HR ISAAC Administration Aspirin 325 mg 04/27/20 08:00 Aspirin 325 Mg Tablet PO DAILY@0800 [facility] Atorvastatin Calcium 80 mg 04/14/20 21:00 04/22/20 20:48 Atorvastatin 40 Mg Tablet PO 80 mg HS ISAAC Administration Clopidogrel Bisulfate 75 mg 04/27/20 09:00 Clopidogrel Bisulfate 75 Mg Tablet PO QAM [facility] Dextrose 12.5 gm 04/14/20 16:58 Dextrose 50% 25 Gm/50 Ml Syringe IV PUSH PRN PRN Hypoglycemia Protocol Escitalopram Oxalate 5 mg 04/15/20 09:00 04/23/20 09:41 Escitalopram Oxalate 5 Mg Tablet PO 5 mg DAILY ISAAC Administration Glucagon 1 mg 04/14/20 16:58 Glucagon For Inj 1 Mg Vial IM PRN PRN Hypoglycemia Protocol Glucose 15 gm 04/14/20 16:58 Glucose Oral Gel 15 Gm Of Glucse In 37.5 Gm Tube PO PRN PRN Hypoglycemia Protocol Dextrose 1,000 mls @ 100 mls/hr 04/14/20 16:58 Dextrose 5% 1,000 Ml IVPB PRN PRN Hypoglycemia Protocol Metoprolol Tartrate 75 mg 04/14/20 21:00 04/23/20 06:04 Metoprolol Tartrate 25 Mg Tablet PO 75 mg Q12HR ISAAC Administration Spironolactone 100 mg 04/15/20 09:00 04/23/20 09:41 Spironolactone 5
[2020-04-23 14:00] VITALS: BP 131/81; PULSE 102; RESP 16; TEMP 37.4; O2SAT 96
[2020-04-23 17:25] LABS: Glucose Point of Care 184 (65-105)
[2020-04-23 20:13] VITALS: PULSE 98
[2020-04-23] MEDS: ATORVASTATIN 40 MG TABLET 80 MG PO (20:14)
[2020-04-23 20:53] LABS: Glucose Point of Care 191 (65-105)
[2020-04-23 22:00] VITALS: BP 150/98; PULSE 58; RESP 18; TEMP 36.2; O2SAT 99
--- NOTE | 2020-04-24 01:09 | PC.NURSE ---
Daylight Savings Time For Daylight Savings Time Ending in the Fall - Clocks are moved back. For Daylight Savings Time Beginning in the Spring - Clocks are moved ahead. For [facility], the time of change occurs at 0200 hrs. Time is taken from the pass worker. This entry on the patient's chart recognizes the change in time reflected during documentation. Example: 2 entries for vital signs may be charted for 0200 hrs.
[2020-04-24 06:00] VITALS: BP 151/88; PULSE 88; RESP 19; TEMP 36.4; O2SAT 96
[2020-04-24 06:59] LABS: Glucose Point of Care 141 (65-105)
[2020-04-24 08:35] VITALS: PULSE 88
[2020-04-24] MEDS: APIXABAN 5 MG TABLET PO (08:35)
[2020-04-24] MEDS: SPIRONOLACTONE 50 MG TABLET 100 MG PO (08:35)
[2020-04-24] MEDS: ESCITALOPRAM OXALATE 5 MG TABLET PO (08:35)
[2020-04-24] MEDS: METOPROLOL TARTRATE 25 MG TABLET 75 MG PO (08:35)
--- NOTE | 2020-04-24 11:44 | WPDNEURORHBP ---
Subjective Date/time seen: 04/24/20 11:44 69 years old with significant intracranial arterial disease is waiting for the transfer to the [facility] for right internal carotid artery stenting Review of Systems Review of Systems: All systems reviewed & are unremarkable except as noted in HPI and below Functional Status Ambulation Ability Ability to Ambulate 10 Feet: Standby Assistance Ability to Ambulate 50 Feet With 2 Turns: Standby Assistance Ability to Ambulate 150 Feet: Standby Assistance Ambulation Assistive Devices: Parallel Bars Transfers Ability Ability to Transfer In/Out of Chair: Standby Assistance Exam Narrative: Exam Narrative: on examination today she is awake alert cooperative his speech not dysphasic not dysarthric not dysphonic ear nose throat examination normal neck is supple heart regular lungs clear abdomen soft neuro examination unchanged daughter happen to be in the room and both aware that she is being transferred to [facility] arrangements have already been made Objective Data Vital Signs Vital Signs: Vital Signs - 24 hr 04/23/20 14:00 04/23/20 20:13 04/23/20 22:00 Temperature 37.4 C 36.2 C L Pulse Rate 102 H 98 58 L Respiratory Rate 16 18 Blood Pressure 131/81 150/98 H Pulse Oximetry 96 99 04/24/20 06:00 04/24/20 08:35 Temperature 36.4 C L Pulse Rate 88 88 Respiratory Rate 19 Blood Pressure 151/88 H Pulse Oximetry 96 Intake/Output Intake/Output: Intake & Output 04/21/20 04/22/20 04/23/20 04/24/20 23:59 23:59 23:59 22:59 Intake Total 840 720 720 240 Balance 840 720 720 240 Meds/Results Medications: Active Medications Generic Name Dose Route Start Last Admin Trade Name Freq PRN Reason Stop Dose Admin Apixaban 5 mg 04/14/20 21:00 04/24/20 08:35 Apixaban 5 Mg Tablet PO 04/27/20 00:05 5 mg Q12HR ISAAC Administration Aspirin 325 mg 04/27/20 08:00 Aspirin 325 Mg Tablet PO DAILY@0800 ISAAC Atorvastatin Calcium 80 mg 04/14/20 21:00 04/23/20 20:14 Atorvastatin 40 Mg Tablet PO 80 mg HS ISAAC Administration Clopidogrel Bisulfate 75 mg 04/27/20 09:00 Clopidogrel Bisulfate 75 Mg Tablet PO QAM ISAAC Dextrose 12.5 gm 04/14/20 16:58 Dextrose 50% 25 Gm/50 Ml Syringe IV PUSH PRN PRN Hypoglycemia Protocol Escitalopram Oxalate 5 mg 04/15/20 09:00 04/24/20 08:35 Escitalopram Oxalate 5 Mg Tablet PO 5 mg DAILY ISAAC Administration Glucagon 1 mg 04/14/20 16:58 Glucagon For Inj 1 Mg Vial IM PRN PRN Hypoglycemia Protocol Glucose 15 gm 04/14/20 16:58 Glucose Oral Gel 15 Gm Of Glucse In 37.5 Gm Tube PO PRN PRN Hypoglycemia Protocol Dextrose 1,000 mls @ 100 mls/hr 04/14/20 16:58 Dextrose 5% 1,000 Ml IVPB PRN PRN Hypoglycemia Protocol Metoprolol Tartrate 75 mg 04/14/20 21:00 04/24/20 08:35 Metoprolol Tartrate 25 Mg Tablet PO 75 mg Q12HR ISAAC Administration Spironolactone 100 mg 04/15/20 09:00 04/24/20 08:35 Spironolactone 50 Mg Tablet PO 100 mg DAILY ISAAC Administration Radiology Results: ITS Impressions Head CT 04/21/20 16:06 IMPRESSION: 1. Subacute infarcts in the left frontal and parietal lobes. 2. Old infarcts in the bilateral frontal and parietal lobes and left caudate nucleus. 3. Moderate nonspecific cerebral white matter disease, which likely represents chronic small vessel ischemic disease. Labs Labs: Laboratory Results - last 24 hr 04/23/20 04/23/20 04/24/20 17:22 20:36 06:55 POC Capillary Glucose 184 H 191 H 141 H Progress Note: A&P Assessment and Plan (1) Acute CVA (cerebrovascular accident): Code(s): I63.9 - Cerebral infarction, unspecified Status: Acute (2) Stroke-like symptom: Code(s): R29.90 - Unspecified symptoms and signs involving the nervous system Status: Acute (3) Recent cerebrovascular accident: Code(
[2020-04-24 12:39] LABS: Glucose Point of Care 167 (65-105)
--- NOTE | 2020-04-28 14:46 | PM.DS ---
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 Admitting evaluation revealed need of Eating partial assistance Oral Care partial assistance Toileting Hygiene substantial Shower/Bathing substantial Upper Body Dressing substantial Lower Body Dressing substantial Donning/[place] Footwear substantial Rolling Left and Right partial assistance Sit to Lying partial under water assistant lying to sit substantial Sit to Stand substantial Bed to Chair Transfers substantial Toilet Transfers substantial Car Transfers partial assistance Walking 10' partial assistance Walking 50' with Two Turns partial assistance Walking 150' partial under water assistant Curb or Step partial assistance 4 Steps partial under water assistant 12 Steps patient is unable to Picking Up Object partial assistance [Wheelchair Mobility 50'] partial under water assistant [Wheelchair Mobility 150'] partial assistance GOALS: Eating said Oral Care independent Toileting Hygiene partial assistance Shower/Bathing supervision Upper Body Dressing supervision Lower Body Dressing partial assistance Donning/[place] Footwear partial assisted Rolling Left and Right independent Sit to Lying independent Lying to Sitting independent Sit to Stand independent chair transfer independent Bed to Chair Transfers independent Toilet Transfers supervision Car Transfers independent Walking 10' supervision Walking 50' with Two Turns supervision Walking 150' supervision Curb or Step supervision 4 Steps super independent 12 Steps supervision Picking Up Object super [Wheelchair Mobility 50' supervision [Wheelchair Mobility 150 supervision DISCHARGE P: patient was transferred to [facility] neurosurgical service to undergo internal carotid end arterectomy because of the bihemispheric vascular disease surgeries will be done by the neurosurgeon personal contact was made with them as the patient was experiencing more difficulties with the right side of her body and family was involving the discussion as well condition was stable. Functional measures were unchanged Shower/Bathing [INDEPENDENT] Upper Body Dressing [INDEPENDENT] Lower Body Dressing [INDEPENDENT] Donning/[place] Footwear [INDEPENDENT] Rolling Left and Right [INDEPENDENT] Sit to Lying [INDEPENDENT] Lying to Sitting [INDEPENDENT] Sit to Stand [INDEPENDENT] Bed to Chair Transfers [INDEPENDENT] Toilet Transfers [INDEPENDENT] Car Transfers [INDEPENDENT] Walking 10' [INDEPENDENT] Walking 50' with Two Turns [INDEPENDENT] Walking 150' [INDEPENDENT] Curb or Step [INDEPENDENT] 4 Steps [INDEPENDENT] 12 Steps [INDEPENDENT] Picking Up Object [INDEPENDENT] [Wheelchair Mobility 50'] [INDEPENDENT] [Wheelchair Mobility 150'] [INDEPENDENT] The patient had [no falls]. DS: Summary Time Spent with Patient Time attestation: Total time spent providing and/or coordinating discharge services: Exam Narrative: Exam Narrative: patient was awake alert cooperative head was normocephalic with no cranial bruit ear nose throat exam was normal neck was supple with bruit heart regular lungs clear abdomen soft and neuro examination was with right-sided neuro deficit which according to the family was getting worse but patient was actually becoming more spastic on the right side but again the call was made to [facility] and they agree to transfer the patient earlier Discharge Plan Discharge Attending physician
--- NOTE | 2020-04-28 15:04 | TS_ITS ---
This report was recreated on May 12, 2020. Original report was signed by Dr. Pantera Sun on May 12, 2020 at 1037. 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 Admitting evaluation revealed need of Eating partial assistance Oral Care partial assistance Toileting Hygiene substantial Shower/Bathing substantial Upper Body Dressing substantial Lower Body Dressing substantial Donning/[place] Footwear substantial Rolling Left and Right partial assistance Sit to Lying partial election assistant lying to sit substantial Sit to Stand substantial Bed to Chair Transfers substantial Toilet Transfers substantial Car Transfers partial assistance Walking 10' partial assistance Walking 50' with Two Turns partial assistance Walking 150' partial election assistant Curb or Step partial assistance 4 Steps partial election assistant 12 Steps patient is unable to Picking Up Object partial assistance [Wheelchair Mobility 50'] partial election assistant [Wheelchair Mobility 150'] partial assistance GOALS: Eating said Oral Care independent Toileting Hygiene partial assistance Shower/Bathing supervision Upper Body Dressing supervision Lower Body Dressing partial assistance Donning/[place] Footwear partial assisted Rolling Left and Right independent Sit to Lying independent Lying to Sitting independent Sit to Stand independent chair transfer independent Bed to Chair Transfers independent Toilet Transfers supervision Car Transfers independent Walking 10' supervision Walking 50' with Two Turns supervision Walking 150' supervision Curb or Step supervision 4 Steps super independent 12 Steps supervision Picking Up Object super [Wheelchair Mobility 50' supervision [Wheelchair Mobility 150 supervision DISCHARGE P: patient was transferred to [facility] neurosurgical service to undergo internal carotid end arterectomy because of the bihemispheric vascular disease surgeries will be done by the neurosurgeon personal contact was made with them as the patient was experiencing more difficulties with the right side of her body and family was involving the discussion as well condition was stable. Functional measures were unchanged Shower/Bathing [INDEPENDENT] Upper Body Dressing [INDEPENDENT] Lower Body Dressing [INDEPENDENT] Donning/[place] Footwear [INDEPENDENT] Rolling Left and Right [INDEPENDENT] Sit to Lying [INDEPENDENT] Lying to Sitting [INDEPENDENT] Sit to Stand [INDEPENDENT] Bed to Chair Transfers [INDEPENDENT] Toilet Transfers [INDEPENDENT] Car Transfers [INDEPENDENT] Walking 10' [INDEPENDENT] Walking 50' with Two Turns [INDEPENDENT] Walking 150' [INDEPENDENT] Curb or Step [INDEPENDENT] 4 Steps [INDEPENDENT] 12 Steps [INDEPENDENT] Picking Up Object [INDEPENDENT] [Wheelchair Mobility 50'] [INDEPENDENT] [Wheelchair Mobility 150'] [INDEPENDENT] The patient had [no falls]. DS: Summary Time Spent with Patient Time attestation: Total time spent providing and/or coordinating discharge services: Exam Narrative: Exam Narrative: patient was awake alert cooperative head was normocephalic with no cranial bruit ear nose throat exam was normal neck was supple with bruit heart regular lungs cl
--- NOTE | 2020-05-12 10:37 | PM.TDS ---
Transfer Discharge Sum: Prov Provider Date of admission: 04/14/20 16:31 Primary care physician: Keenan Holm DO Admitting clinician: Carlton Meneses MD Consults: 04/19/20 Consult to Home Health Routine Reason for Consult:: Occupational Therapy Physicial Therary Speech Therapy DS: Admitting Diagnosis Admitting Diagnosis Admitting Diagnosis: cva Transfer Discharge Sum: Med Medications Active and Home Medications: Home Medications apixaban [Eliquis] 5 mg PO Q12HR #60 tablet 04/01/20 [Rx Confirmed 04/14/20] atorvastatin 80 mg PO HS #30 tablet 04/01/20 [Rx Confirmed 04/14/20] metoprolol tartrate 75 mg PO Q12H #60 tablet 04/01/20 [Rx Confirmed 04/14/20] spironolactone 100 mg PO DAILY 04/14/20 [History Confirmed 04/14/20] escitalopram oxalate 5 mg tablet 5 mg PO DAILY #3 tablet 04/29/20 [Rx] Transfer Discharge Sum: Hosp Hospital Course Hospital course: Janessa Foster is a 69 year old female Time Spent with Patient Time attestation: Total time spent providing and/or coordinating transfer services:
== END 2020-04-24 16:05 | disposition short-term general hospital (02) | DRG 57 ==
PROVIDERS: Admitting Provider Psychiatry & Neurology Neurology; PCP Internal Medicine; Visit Provider Psychiatry & Neurology Neurology
DX: I69.351 Hemiplegia and hemiparesis following cerebral infarction affecting right dominant side (principal); I65.23 Occlusion and stenosis of bilateral carotid arteries; I69.398 Other sequelae of cerebral infarction; H53.40 Unspecified visual field defects; I48.91 Unspecified atrial fibrillation; I10 Essential (primary) hypertension; E78.5 Hyperlipidemia, unspecified; K21.9 Gastro-esophageal reflux disease without esophagitis; R73.9 Hyperglycemia, unspecified; Z79.01 Long term (current) use of anticoagulants
CPT/HCPCS: 36415; 70450; 80048; 80061; 83036; 85025; 92507; 92523; 97110; 97112; 97116; 97162; 97167; 97530; 97535; A9270